=== PATIENT | female | born 1990 | race Caucasian/White ===

== ENCOUNTER 2025-02-27 16:32 | Emergency (ER) | payer OTHER, SELFPAY ==
[2025-02-27 16:33] VITALS: BP 109/59; PULSE 90; RESP 14; TEMP 37.5; O2SAT 97; BMI 30.2
--- NOTE | 2025-02-27 17:22 | US_ITS ---
PROCEDURE: TRANSVAGINAL W/PREG US 02/27/2025 REASON FOR EXAM: 8 WEEKS ABD PAIN. Abdominal pain, fever and dizziness TECHNIQUE: TRANSVAGINAL W/PREG US FINDINGS Number: 1 Position: Intrauterine Placental Position: Too early Placental Abnormalities: Too early to say DIMENSIONS: Gestational sac 3.22 cm/ Anechoic area adjacent to gestational sac measures 1.3 x 1.1 x 0.8 cm. Possible implantation bleed. Yolk sac: 0.46 cm Vance rump length: 2.62 cm. Gestational age based on crown rump length 9 weeks, 1 day ESTIMATED GESTATIONAL AGE: EGA by ultrasound: 8 weeks, 6 days. EGA by LMP 9 weeks, 3 days. Estimated due date by ultrasound: October 03, 2025. Estimated due date by LMP: September 29, 2025 Cardiac Motion: 193 beats per minute (average) Cervix: Closed. Fluid in cul-de-sac: None Uterus: 9.5 x 7.6 x 8.6 cm. Volume: 327 mL. Right ovary measures 42.2 x 1.1 x 0.96 cm volume: 1.19 mL. Left ovary measures 1.9 x 2.0 by 2.7 cm left ovary volume is 5.3 mL US/Transvaginal w/Preg US IMPRESSION: Single live intrauterine 8 weeks, 6 days by current ultrasound and 9 weeks, 3 days by LMP. ARELI by ultrasound: October 03, 2025 and by LMP September 29, 2025 Reading [facility]
--- NOTE | 2025-02-27 17:48 | EX.ED.DYSGE1 ---
HPI History of Present Illness Chief Complaint: Abd Pain Narrative Narrative: Patient is a 34-year-old female currently 8 weeks who presents to the emergency department chief complaint of abdominal pain. States on Friday she started feeling unwell with nausea and vomiting and has been progressively worsening. Patient states that she has had a gallbladder infection before but has not had this removed. She states that some of her children are ill right now but none of them have similar symptoms. Clinic at bedside she has been unable to keep anything down last several hours prompting them to come here. She states that she has had a fever and has been taking Tylenol at home [facility] Medical History no medical history Home Medications ?Medication ?Instructions ?Recorded ?Last Taken ?Type ondansetron 4 mg disintegrating 4 mg PO Q6H PRN nausea and 02/27/25 Unknown Rx tablet vomiting #20 tabs Allergy/AdvReac Type Severity Reaction Status Date / Time No Known Allergies Allergy Verified 02/27/25 16:33 Family History no significant family his Surgical History no surgical history Social History household members: spouse and children Smoking Status: Never smoker ROS ROS ED ROS Narrative Constitutional: Complains of fever as noted above and chills as well as whole body aches Eyes: Denies change in vision double vision Cardiovascular: Denies chest pain Respiratory: Denies shortness of breath Abdomen: Complains of abdominal pain as noted above as well as nausea vomiting : Denies any urinary symptoms Neurological: Denies any numbness, weakness, tingling Musculoskeletal: Complains of right back pain Skin: Denies any rashes or lesions EXAM Physical Exam Narrative Exam Narrative: General: Patient lying in bed resting comfortably did not appear to be acute distress Head: Atraumatic, normocephalic Eyes: PERRL bilateral, EOMI by, no conjunctival injection noted Neck: Soft, supple, trachea midline Cardiovascular: Regular rate and rhythm Respiratory: Clear to auscultation bilaterally Abdomen: Soft, nondistended, mild tenderness noted diffusely throughout her abdomen no focal area tenderness no rebound or guarding on exam Extremities: +5/5 strength noted in the bilateral upper and lower extremities, radial pulses +2/4 in the bladder extremities, no pedal edema exam Neurological: Patient follow commands knew that she was at [facility] the year is 2024 Skin: Warm, dry contact no rashes or lesions noted Const Vital Signs: 02/27/25 16:33 02/27/25 18:32 02/27/25 20:00 Temperature 99.5 F H Temperature Source Oral Pulse Rate 90 58 L 95 Respiratory Rate 14 15 16 Blood Pressure 109/59 L 110/78 106/62 Blood Pressure Mean 75 88 76 Pulse Ox 97 100 96 Oxygen Delivery Method Room Air Room Air 02/27/25 22:00 Temperature Temperature Source Pulse Rate 82 Respiratory Rate 16 Blood Pressure 106/62 Blood Pressure Mean 76 Pulse Ox 100 Oxygen Delivery Method Room Air MDM MDM MDM Narrative Medical decision making narrative: Patient is a 34-year-old female who presents to the emergency department with a chief complaint of abdominal pain nausea and vomiting in the setting of . She states that she has not seen a doctor about this she has not had any further testing. On the differential diagnosis includes but not limited to UTI, pyelonephritis, ectopic , appendicitis, cholecystitis. Once workup is obtained reviewed she will be reevaluated. Patient be given Reglan. Patient's CBC was reviewed which showed evidence leukocytosis of 15,000, hemoglobin 13.6, plate count of 365. Patient sodium was noted be 136, potassium 3.2 she will be given 40 mill equivalents of oral supplementation here, anion gap mildly elevated to 16, creatinine normal at 0.62. Patient AST and ALT are 62 and 29 respectively. Patient's quant level was 134,000 301 positive test. Patient 250 occult blood negative nitrites 0-5 white cells with no bacteria noted. Patient's ultrasound was reviewed which showed a single live intrauterine 8 weeks 6 days by current ultrasound at 9 weeks 3 days by last menstrual period. heart rate was noted to be the 193 bpm. I discussed the case with on-call [employer] Dr. Verdin who is recommending obtaining CT abdomen pelvis given that she is having right lower quadrant pain fevers and a white count. I discussed this plan with the patient and significant other bedside they are agreeable with this plan. We discussed the risks and benefits. Patient CT ab pelvis IV contrast showed no acute finding to suggest acute appendicitis. She does have evidence of enteritis or colitis. On reevaluation the patient she is feeling better she would like to go home at this point time. Did discuss results with the patient she was vies use Tylenol for pain and fever control. She will given Zofran ODT for nausea control. She is vies follow-up with her doctors in the outpatient setting return with worsening symptoms or concerns. She is agreeable this plan as well as significant other bedside all question concerns answered she was discharged home in stable condition. Lab Data Labs: Laboratory Results - last 24 hr 02/27/25 02/27/25 17:15 18:58 WBC 15.2 H RBC 4.94 Hgb 13.6 Hct 40.6 MCV 82.2 MCH 27.5 MCHC 33.5 RDW Std Deviation 39.7 RDW Coeff of Elisa 13.3 Plt Count 365 MPV 8.8 Immature Gran % (Auto) 0.300 Neut % (Auto) 83.0 H Lymph % (Auto) 11.4 L [place] % (Auto) 4.8 Eos % (Auto) 0.1 Baso % (Auto) 0.4 Absolute Neuts (auto) 12.6 H Absolute Lymphs (auto) 1.74 Nucleated RBC % 0 Sodium 136 Potassium 3.2 L Chloride 100 Carbon Dioxide 20.8 L Anion Gap 16 H BUN 5 Creatinine 0.62 L Estim Creat Clear Calc 110.81 Est GFR (MDRD) Non-Af 119 BUN/Creatinine Ratio 8.0 L Glucose 97 Calcium 9.5 Total Bilirubin 0.34 AST 62 H ALT 29 Alkaline Phosphatase 125 H Total Protein 8.5 H Albumin 4.3 Globulin 4.1 Albumin/Globulin Ratio 1.0 Lipase 39 HCG, Quant 334253 H Serum , Qual POSITIVE Urine Color Yellow Urine Clarity Sl. Cloudy Urine pH 6.0 Ur Specific [place] 1.020 Urine Protein 500 H Urine Glucose (UA) Normal Urine Ketones 50 H Urine Occult Blood 250 H Urine Nitrite Negative Urine Bilirubin Negative Urine Urobilinogen 1 H Ur Leukocyte Esterase 25 H Urine RBC 0-5 SEEN Urine WBC 0-5 SEEN Ur Squamous Epith Cells 0-5 SEEN Urine Bacteria 0 SEEN Urine Mucus 0 SEEN Radiography Diagnostic Testing: Clinical Impression(s) from Imaging Studies Obstetrics Ultrasound 02/27/25 17:22 IMPRESSION: Single live intrauterine 8 weeks, 6 days by current ultrasound and 9 weeks, 3 days by LMP. ARELI by ultrasound: October 03, 2025 and by LMP September 29, 2025 Reading Location: [facility] Abdomen/Pelvis CT 02/27/25 21:42 IMPRESSION: Negative exam. Differential diagnostic considerations and additional clinical findings discussed with Dr. Raymond in the ER at 10:40 p.m. February 27, 2025 Reading [facility] Discharge Plan Triage Chief Complaint: Abd Pain ED Provider: Ganesh Raymond Dx/Rx/DC Orders Clinical Impression: Abdominal pain, Fever, Currently , Viral gastroenteritis Prescriptions: New ondansetron 4 mg tablet,disintegrating 4 mg PO Q6H PRN (Reason: nausea and vomiting) Qty: 20 0RF Primary Care Provider: Mikhail Kyle Referrals: Mikhail Kyle PA-C [Primary Care Provider] - Activity Restrictions/Additional Instructions: Follow-up with your doctors in outpatient setting. Use the Zofran as needed for nausea as prescribed. Return with worsening symptoms or concerns. Your CT did not show any evidence of appendicitis does show evidence that he likely have a virus causing your symptoms. Ensure you are taking a vitamin daily. Print Language: Dominican Disposition Disposition: Home, Self Care
[2025-02-27 17:56] LABS: Hematocrit 40.6 % (37-47); Hemoglobin 13.6 g/dL (12.0-15.0); Immature Granulocytes Count 0.050 X10^3/uL (0.0-0.0); Mean Corp Hgb Conc 33.5 g/dL (32-36); Mean Corpuscular Volume 82.2 fL (81-99); Mean Platelet Vol. 8.8 fl (6.2-12.0); NRBC Flagged by Analyzer 0 % (0-5); Platelet Count 365 K/mm3 (150-450); RBC Distribution Width CV 13.3 % (11.6-14.6); RBC Distribution Width SD 39.7 fl (35.1-43.9); Red Blood Count 4.94 M/mm3 (4.2-5.4); White Blood Count 15.2 K/mm3 (4.4-11.0)
[2025-02-27 18:02] LABS: Internal QC Validated? YES +Cl - CLEAR BKGD; Record Kit Lot#, Serum Preg. 962302
[2025-02-27 18:04] LABS: AST(SGOT) 62 U/L (<=31); Alanine Aminotransfer ALT/SGPT 29 U/L (<=34); Albumin, Serum 4.3 g/dL (3.5-5.0); Alkaline Phosphatase 125 U/L (35-104); Anion Gap 16 (5-15); BUN 5 mg/dL (4-19); BUN/Creat Ratio 8.0 RATIO (10-20); Calcium,Total 9.5 mg/dL (7.6-11.0); Carbon Dioxide 20.8 mmol/L (21.0-32.0); Chloride 100 mmol/L (98-108); Estimated Creatinine Clearance 110.81 ml/min (50-250); Globulin 4.1 g/dL (2.2-4.2); Glucose 97 mg/dL (70-99); Lipase 39 U/L (13-75); Potassium 3.2 mmol/L (3.3-5.1)
--- OUTSIDE RECORDS SUMMARY | 2025-02-27 18:04 | XMS RPT_ITS | CCD ---
Author Organization [facility] Care Team Providers Care Glass Sander Name Role Phone Thomae, Pietro R Unavailable Unavailable No Doctor Assigned, Nodr Unavailable Unavail able Thomae, Pietro R Unavailable Unavailable Thomae, Pietro R Unavailable Unavailable Thomae, Pietro R Unavailable Unavailable No Doctor Assigned, Nodr Unavailable Unavail able Thomae, Pietro R Unavailable Unavailable No Doctor Assigned, Nodr Unavailable Unavail able Rickey Franklinta Unavailable Unavailable No Doctor Assigned, Nodr Unavailable Unavail able MESALINASHISUNDARAM CHANDRAMOHAN Unavailable Unavailable DALILA GILMORE Unavailable Unavailabl DAVID Ogden Unavailable Unavailable Problems Active Problems Problem Classification Problem Date Documented Da te Episodic/Chronic Regional enteritis and ulcerative colitis (1 source) Ulcerative (chronic) pancolitis without complications; Translations: [Ulcerative (chronic) pancolitis without complications] Onset: 09-02-2017 Chronic Past or Other Problems Problem Classification Problem Date Documented Da te Episodic/Chronic Abdominal pain (1 source) Right upper quadrant pain; Translations: [Right upper quadrant pain] Onset: 09-02-2017 Episodic Biliary tract disease (1 source) Calculus of gallbladder without cholecystitis without obstruction; Translations: [Calculus of gallbladder without cholecystitis without obstruction] Onset: 09-02-2017 Episodic Nausea and vomiting (1 source) Nausea with vomiting, unspecified; Translations: [Nausea with vomiting, unspecified] Onset: 09-02-2017 Episodic Noninfectious gastroenteritis (1 source) Noninfective gastroenteritis and colitis, unspecified; Translations: [Noninfective gastroenteritis and colitis, unspecified] Onset: 09-05-2017 Episodic Other circulatory disease (1 source) Hypotension, unspecified; Translations: [Hypotension, unspecified] Onset: 09-03-2017 Episodic Other gastrointestinal disorders (1 source) Diarrhea, unspecified; Translations: [Diarrhea, unspecified] Onset: 09-03-2017 Episodic Results Test Name Value Interpretation Reference Range Facility Basic Metabolic Panlon 09-05 Anion gap 10 mmol/L Normal 9-18 [facility] Comment on above: Performed By: #### B ETAMM, CMP, LIPA, CBCDIF ####[facility] [address] [place] [address] Calcium 8.1 mg/dL Low 8.5-10.2 [facility] Comment on above: Performed By: #### B ETAMM, CMP, LIPA, CBCDIF ####[facility] [address] [place] [address] Chloride 107 mmol/L High 97-105 [facility] Comment on above: Performed By: #### B ETAMM, CMP, LIPA, CBCDIF ####[facility] [address] [place] [address] CO2 23 mmol/L Normal 22-30 [facility] Comment on above: Performed By: #### B ETAMM, CMP, LIPA, CBCDIF ####[facility] [address] [place] [address] Creatinine 0.63 mg/dL Normal 0.58-0.96 [facility] Comment on above: Performed By: #### B ETAMM, CMP, LIPA, CBCDIF ####[facility] [address] [place] [address] eGFR (non-black) mL/min/{1.73_m2} Normal [facility] Comment on above: Result Comment: eGFR (Estimated GFR) Units of measure: mL/min/1.73 meters squaredeGFR is derived from the reexpressed MDRD Study equation using the following parameters: serum creatinine, age, gender and race. The creatinine assay has been calibrated to be traceable to IDMS.An eGFR <60 mL/min/1.73m2 for >3 months is consistent with chronic kidney disease. Refer to KDOQI guidelines for clinical interpretation.In patients with unstable renal function, e.g. those with acute kidney injury, the eGFR may not accurately reflect actual GFR. Performed By: #### B ETAMM, CMP, LIPA, CBCDIF ####[facility] [address] [place] [address] Glucose mass conc 89 mg/dL Normal 74-99 [facility] Comment on above: Result Comment: The [place] Diabetes Association (ADA) provides guidance for cutoff values for fasting glucose and random glucose. The ADA defines fasting as no caloric intake for at least 8 hours. Fasting plasma glucose results between 100 to 125 mg/dL indicate increased risk for diabetes (prediabetes).Fasting plasma glucose results greater than or equal to 126 mg/dL meet the criteria for diagnosis of diabetes. In the absence of unequivocal hyperglycemia, results should be confirmed by repeat testing. In a patient with classic symptoms of hyperglycemia or hyperglycemic crisis, random plasma glucose results greater than or equal to 200 mg/dL meet the criteria for diagnosis of diabetes.Reference: Standards of Medical Care in Diabetes 2016, [place] Diabetes Association. Diabetes Care. 2016.39(Suppl 1). Performed By: #### B ETAMM, CMP, LIPA, CBCDIF ####[facility] [address] [place] [address] Potassium molar conc 3.6 mmol/L Low 3.7-5.1 [facility] Comment on above: Performed By: #### B ETAMM, CMP, LIPA, CBCDIF ####[facility] [address] [place] [address] Sodium 140 mmol/L Normal 136-144 [facility] Comment on above: Performed By: #### B ETAMM, CMP, LIPA, CBCDIF ####[facility] [address] [place] [address] Urea nitrogen 4 mg/dL Low 7-21 [facility] Comment on above: Performed By: #### B ETAMM, CMP, LIPA, CBCDIF ####[facility] [address] [place] [address] CASE MANAGEMon 09-05-2017 CASE MANAGEM HNO ID: [id number] thor: Joie (Rn) EDDIE Griderervice: Case ManagementAuthor Type: Registered NurseType: Care Mgt Progress NoteFiled: 09/05/2017 5:08 PMNote Text:CARE MANAGEMENT DISCHARGE NOTESERVICE DATE: 09/05/2017SERVICE TIME: 5:06 PM LOS: 2 daysAdmission Date: 09/02/2017DISCHARGE ARRANGEMENT (list agency and phone number)HomeProvider: na Phone: naCAREGIVER ASSESSMENT:Caregiver is ready, willing and able to meet the patient's needs asrecommended by the inter-professional team? No Caregiver NeededPatient's transition needs and plan for meeting these needs: naDoes the patient have an acute stroke diagnosis, or has the patient had astroke during this admission? NoHANDOFF COMMUNICATION:Patient has follow up appointment schedule with GITRANSPORTATION ARRANGEMENTS:Car Friend will transportADDITIONAL CONTACT RESOURCES: naNeeds Prior to Discharge: Ready for DischargeDischarge order written for today, patient discharged home with noservices. Friend will transport.SIGNATURE: Joie Grider RN PATIENT NAME: Elsa Henry: September 05, 2017 : 5:06 PM PAGER/CONTACT #: [phone] Normal [facility] CBC and Differentialon 09-05 Abs Baso 0.06 k/uL Normal <0.11 [facility] Comment on above: Performed By: #### B ETAMM, CMP, LIPA, CBCDIF ####[facility] [address] [place] [address] Abs Lym 2.27 K/uL Normal 0.90-4.00 [facility] Comment on above: Performed By: #### B ETAMM, CMP, LIPA, CBCDIF ####[facility] [address] [place] [address] Abs Warren 0.32 k/uL Normal <0.87 [facility] Comment on above: Performed By: #### B ETAMM, CMP, LIPA, CBCDIF ####[facility] [address] [place] [address] Abs Neut 3.45 k/uL Normal 1.70-7.00 [facility] Comment on above: Performed By: #### B ETAMM, CMP, LIPA, CBCDIF ####[facility] [address] [place] [address] Basophils/100 WBC Auto (Bld) 1 % Normal [facility] Comment on above: Performed By: #### B ETAMM, CMP, LIPA, CBCDIF ####[facility] [address] [place] [address] Eosinophils 0.39 10*3/uL Normal <0.46 [facility] Comment on above: Performed By: #### B ETAMM, CMP, LIPA, CBCDIF ####[facility] [address] [place] [address] Eosinophils/100 leukocytes 6 % Normal [facility] Comment on above: Performed By: #### B ETAMM, CMP, LIPA, CBCDIF ####[facility] [address] [place] [address] Erythrocyte distribution width Auto Ratio (RBC) 12.5 % Normal 11.5-15.0 [facility] Comment on above: Performed By: #### B ETAMM, CMP, LIPA, CBCDIF ####[facility] [address] [place] [address] Erythrocytes (RBC) 3.77 10*6/uL Low 3.90-5.20 [facility] Comment on above: Performed By: #### B ETAMM, CMP, LIPA, CBCDIF ####[facility] [address] [place] [address] Hematocrit (HCT) 32.0 % Low 36.0-46.0 [facility] Comment on above: Performed By: #### B ETAMM, CMP, LIPA, CBCDIF ####[facility] [address] [place] [address] Hemoglobin mass conc (Bld) 10.1 g/dL Low 11.5-15.5 [facility] Comment on above: Performed By: #### B ETAMM, CMP, LIPA, CBCDIF ####[facility] [address] [place] [address] Lymphocytes/100 leukocytes 35 % Normal [facility] Comment on above: Performed By: #### B ETAMM, CMP, LIPA, CBCDIF ####[facility] [address] [place] [address] MCH 26.8 pG Normal 26.0-34.0 [facility] Comment on above: Performed By: #### B ETAMM, CMP, LIPA, CBCDIF ####[facility] [address] [place] [address] MCHC mass conc (RBC) 31.6 g/dL Normal 30.5-36.0 [facility] Comment on above: Performed By: #### B ETAMM, CMP, LIPA, CBCDIF ####[facility] [address] [place] [address] MCV 84.9 fL Normal 80.0-100.0 [facility] Comment on above: Performed By: #### B ETAMM, CMP, LIPA, CBCDIF ####[facility] [address] [place] [address] Monocytes/100 leukocytes 5 % Normal [facility] Comment on above: Performed By: #### B ETAMM, CMP, LIPA, CBCDIF ####[facility] [address] [place] [address] Neutrophils/100 WBC Auto (Bld) 53 % Normal [facility] Comment on above: Performed By: #### B ETAMM, CMP, LIPA, CBCDIF ####[place] [address] Platelet mean volume (PMV) 8.7 fL Low 9.0-12.7 [facility] Comment on above: Performed By: #### B ETAMM, CMP, LIPA, CBCDIF ####[facility] [address] [place] [address] Platelets Platelet estimate adequate Normal [facility] Comment on above: Performed By: #### B ETAMM, CMP, LIPA, CBCDIF ####[facility] [address] [place] [address] Platelets 291 10*3/uL Normal 150-400 [facility] Comment on above: Performed By: #### B ETAMM, CMP, LIPA, CBCDIF ####[facility] [address] [place] [address] Red Cell Morph SEE COMMENT Normal [facility] Comment on above: Result Comment: Unre markable Performed By: #### B ETAMM, CMP, LIPA, CBCDIF ####[facility] [address] [place] [address] WBC (Leukocytes) 6.49 10*3/uL Normal 3.70-11.00 [facility] Comment on above: Performed By: #### B ETAMM, CMP, LIPA, CBCDIF ####[facility] [address] [place] [address] CNDSon 09-05-2017 CNDS HNO ID: [id number] thor: ZAK Joeervice: [facility] MedicineAuthor Type: PhysicianType: Discharge SummariesFiled: 09/05/2017 4:20 PMNote Text:DISCHARGE SUMMARYPATIENT NAME: Elsa CruzN: [id number] Information Admission Information ADMIT DATE: 09/02/2017DISCHARGE DATE: 09/05/2017MY DOCTORS AND MEDICAL TEAM:My Main Hospital Doctor: Calixto Joe Care Provider: No primary care provider on file.My Medical Team Members: Treatment Team:Attending Provider: RAY Joeonsulting: Greyson Qiu BashourConsulting: David Proctor CONDITION AT DISCHARGE: StableREASON I WAS IN THE HOSPITAL: The cultures on the stool showed Salmonella. The infectious disease doctor felt that Omnicef was the best antibioticand it is prescribed. You are also to take the bacterial culture andawait to her gallbladder taken out after being cleared by thegastroenterologist.SUMMARY OF WHAT HAPPENED WHILE I WAS IN THE HOSPITAL: Given IV fluids andstudies of your gallbladder were done that showed you have pain sometimesfrom the stones but the gallbladder is not infected yet.OTHER PROBLEMS/DIAGNOSIS:Active Problems: Colitis, acute Calculus of gallbladder without cholecystitis Diarrhea of presumed infectious origin Hypotension Ulcerative colitis without complications (HCC)Resolved Problems: * No resolved hospital problems. *OPERATIONS PERFORMED WHILE IN THE HOSPITAL: NoneIMPORTANT TEST/PROCEDURES:No procedures performedTEST RESULTS NOT AVAILABLE AT THIS TIME:No pending results Discharge Disposition Discharge Disposition: Home With Self CareActivity When You Leave the Hospital Resume pre-hospital activityDiet Instructions Low Fat Small meals with low fat content to prevent gallbladder spasmFor Pain When You Leave the Hospital Use acetaminophen (Tylenol) as recommended on the bottleFollow Up Appointments Follow-Up Appointment [place] officeWhen: In: Comment - 09/19 10:30Patient/Parents to call for appointment?: Gregorio [phone] DIGESTIVE DISEASE [id number] [facility] [address] [id number] Requested ReferralAdditional Provider to Provider Information:Active Hospital Problems as of 09/05/2017 Noted - Resolved A Colitis, acute 09/03/2017 - Present Current Assessment AND PlanAssessment: 4 years duration with intermittent symptoms treated asulcerative colitis in the past records are pending from [facility] positiveoccult blood and lactoferrin. Negative Giardia and cryptosporidium and C.difficilePLAN:Per GI service B Calculus of gallbladder without cholecystitis 09/03/2017 - Present Current Assessment AND PlanAssessment: Multiple stones with recurrent vomiting concerning for biliarycolicPLAN:HIDA scan pending C Diarrhea of presumed infectious origin 09/03/2017 - Present Current Assessment AND PlanAssessment: Stool studies are sentPLAN:plan from GI D Hypotension 09/03/2017 - Present Current Assessment AND PlanAssessment: Lactate is negative and she is responding with improvement ofher symptoms with IV hydrationPLAN:Continue hydration M Ulcerative colitis without complications (HCC) 09/03/2017 - Present Current Assessment AND PlanAssessment: similar episodes of diarrhea, N/V, 4 years duration recurrentsymptomsPLAN:Colonosc opy plannedResolved Hospital Problems as of 09/05/2017 NoneFOLLOW-UP APPOINTMENTS ALREADY SCHEDULED WITH A [facility] PROVIDER:No future appointments.DISCHARGE MEDICATION: Current Discharge Medication ListSTART taking these medicationslactobacillus rhamnosus (CULTURELLE) 1 capsuleTake 1 capsule by mouth once daily.Qty: 30 capsule Refills: 0ondansetron orally disintegrating (ZOFRAN ODT) 4 mgTake 4 mg by mouth every 6 hours as needed.Qty: 12 tablet Refills: 0cefdinir (OMNICEF) 300 mgTake 300 mg by mouth twice daily.Qty: 14 capsule Refills: 0BP 102/67 Pulse (!) 55 Temp 37.1 ?C (98.8 ?F) (Oral) Resp 18 Ht154.9 cm (5' 1) Wt 55.1 kg (121 lb 6.4 oz) LMP 08/02/2017 SpO2 94% BMI 22.94 kg/q7OHGHAJK: Alert, no distress, cooperativeNECK: No Jugulovenous distentionLUNGS: Clear without respiratory distressCARDIAC: RRR without murmur, rub, or gallopABDOMEN: Abdomen soft, non-tender, BS normal, No masses or organomegalyEXTREMITIES:no edema No cordsNEURO: Grossly normal cognition, motor function, and cranial nerves.TIME OF CARE: Discharge Management: I personally spent greater than 30minutes involved in the discharge management of this patient.SIGNATURE: Dalila Gilmore MD PAGER/CONTACT #:DATE: September 05, 2017TIME: 4:16 PM [facility] CONSULT PROGon 09-05-2017 CONSULT PROG HNO ID: [id number] thor: Joie ([facility]) Musaervice: General SurgeryAuthor Type: Nurse PractitionerType: Consult Progress NoteFiled: 09/05/2017 1:08 PMNote Text: Attes tation signed by David Stewart at 09/05/2017 2:13 PMPatient seen and examinedAgree with [facility] notesFeeling better.Salmonella infection/ ? UCNo acute cholecystitis -- but does have biliary colic.Recommend gerber after colitis resolvedPatient and family in agreement with Duncan Stewart MD ASHVIN Galeas PROGRESS NOTESERVICE DATE: 09/05/2017SERVICE TIME: 1:02 PMINTERVAL HPI: Elsa is feeling better, her abdominal pain is minimal, nonausea, tolerating a soft diet, passing gas, bowel movement this morningthat was normal, no blood or mucous. + salmonella infection, discussedproper food handling and hand washing with patient and her family.Assessment/PlanActive Problems: Colitis, acute POA: Yes Assessment AND Plan: per GI Calculus of gallbladder without cholecystitis POA: Yes Assessment AND Plan: No immediate surgical need, may consider as anoutpatient dependent on symptoms. Diarrhea of presumed infectious origin POA: Yes Assessment AND Plan: Per GIResolved Problems: * No resolved hospital problems. *Current hospital medications:ciprofloxacin HCl 500 mg tab(s) (CIPRO) 500 mg ORAL q 12 Hlactobacillus rhamnosus 10 billion cell (CULTURELLE) capsule 1 capsuleORAL DAILYondansetron orally disintegrating 4 mg tab(s) (ZOFRAN ODT) 4 mg ORAL q 6 HPRNondansetron (PF) 4 mg injection (ZOFRAN) 4 mg INTRAVENOUS q 6 H PRNiv contrast (radiology procedure) INTRAVENOUS DIRECTED PRNObjectivePHYSICAL EXAM:BP 102/67 Pulse 55 Temp (Src) 98.8 (Oral) Resp 18 Ht 5' 1 (1.55m) Wt 121 lb 6.4 oz (55.1kg) SpO2 94% LMP 08/02/2017 BMI 22.95kg/(m2).GENERAL: Alert, no distress, cooperativeSKIN: Skin color, texture, turgor normal. No rashes or lesions.LUNGS: Lungs clear to auscultation, Good diaphragmatic excursionCARDIAC: Normal S1 and S2; no rubs, murmurs, or gallopsABDOMEN: Abdomen soft, mild epigastric tenderness with palpation, BSnormal, No masses or organomegalyEXTREMITIES: Extremities normal, no deformities, edema, clubbing or skindiscoloration. Good capillary refill.NEURO: Gait normal. Reflexes normal and symmetric. Sensation grosslyintact, Cranial nerves II-XII intactPULSES: 2+ radial, 2+ carotidRECTAL: Exam deferredWOUND: Not applicableDATA:Diagnostic tests reviewed for today's visit:Most recent labs and imaging results.SIGNATURE: Joie Rausch CNP PATIENT NAME: Elsa GuidoDATE: September 05, 2017 : 1:02 PM PAGER: [phone] Normal [facility] CONSULT PROG HNO ID: [id number] thor: Gabriel Currie: GastroenterologyAuthor Type: PhysicianType: Consult Progress NoteFiled: 09/05/2017 1:06 PMNote Text:GASTROENTEROLOGY CONSULT PROGRESS NOTEPatient Name: Elsa GuidoMRN: [id number] DATE: September 05, 2017SERVICE TIME: 8:27 AMASSESSMENT1- Salmonella infection2- Abdominal pain, nausea, vomiting, diarrhea - improved. Most likely r/t#1.3- CT evidence of colitis from cecum through descending colon4- Cholelithiasis with normal HIDA scan (09/03/17)5- Normocytic anemia with component of low iron6- Hx UC (no meds)?PLAN- Continue Cipro 500 mg po Q12 x 7 days (09/04/17)- Advance diet to GI soft- Culturelle daily- Encouraged increased ambulation- D/C IVF- Await results of remaining stool studies (final culture)- Stool log- CBC, BMP daily- Surgery on consult with no plans for surgical intervention at this time. Will most likely need lap gerber- timing as per surgery- Will need colonoscopy in 4 weeks after resolution of Salmonellainfection- Follow up appointment arranged with [facility]. Mauricio [facility] Colonoscopy to be arranged at that time.Patient seen and examined. Discussed with mid level provider. Fishman findingsconfirmed. Plan as outlined.Gabriel Santacruz, [facility] 20171:06 PM INTERVAL HPI: Stools decreasing in frequency and starting to form. Onestool overnight and once thus far this am. No hematochezia. Denies nauseaor vomiting. Tolerating [place] diet. Asking for oatmeal. Abdominal painimproved- ~2/10.PHYSICAL EXAM:Patient Vitals for the past 24 hrs: BP Temp Temp src Pulse Resp SpO2 Covhkr71/02/18 0757 102/67 37.1 ?C (98.8 ?F) Oral (!) 55 18 94 % -09/05/17 0554 - - - - - - 55.1 kg (121 lb 6.4 oz)09/05/17 0014 87/57 - - 60 - - -09/05/17 0013 (!) 87/48 36.9 ?C (98.4 ?F) Oral (!) 52 22 96 % -09/04/17 1609 100/63 36.8 ?C (98.2 ?F) Oral (!) 57 18 98 % -GENERAL: Alert and oriented x 3. Appears comfortable. NADHEENT: No pallor. No scleral icterusLUNGS: Clear to auscultation posteriorlyCARDIAC: RRRABDOMEN: Soft. Non distended. Tender RUQ and RLQ. Bowel sounds normal. Noguarding or rebound tenderness.EXTREMITIES: No edema to JOSEPH lower extremitiesLABS:CBC, Coags, BMP, Mg, PhosRecent Labs 09/04/1802WBC 6.49 8.71 -- -- 9.41HB 10.1* 10.4* -- -- 11.7HCT 32.0* 33.1* -- -- 36.3PLT 291 303 -- -- 367NA 140 140 -- 142 141K 3.6* 3.9 -- 3.9 3.6*CHLOR 107* 106* -- 106* 103CO2 23 24 -- 25 25BUN 4* 5* -- 4* 5*CREAT 0.63 0.65 -- 0.61 0.65GLUC 89 92 -- 107* 97CA 8.1* 8.1* -- 7.8* 9.1MG -- -- 2.0 -- --Liver Function, Amylase, AND LipaseRecent Labs 09/02/1819TPROT 6.3 7.7ALB 3.2* 4.0ALT <5* <5*AST 12* 13ALKPHOS 57 70TBILI 0.3 0.2LIPASE 49 63*MEDICATIONS:Current hospital medications:ciprofloxacin HCl 500 mg tab(s) (CIPRO) 500 mg ORAL q 12 Hlactobacillus rhamnosus 10 billion cell (CULTURELLE) capsule 1 capsuleORAL DAILYNaCl 0.9% iv infusion 75 mL/hr INTRAVENOUS CONTINUOUSondansetron orally disintegrating 4 mg tab(s) (ZOFRAN ODT) 4 mg ORAL q 6 HPRNondansetron (PF) 4 mg injection (ZOFRAN) 4 mg INTRAVENOUS q 6 H PRNiv contrast (radiology procedure) INTRAVENOUS DIRECTED PRNMISC LABSComponent Latest Ref Rng AND Units 09/02/2017 09/03/2017Color Yellow Yellow ??Appearance (U) Clear Clear ??Glucose, Urine Negative mg/dL Negative ??Bilirubin, Urine Negative Negative ??Ketones, Urine Negative Negative ??Specific [place], Ur 1.001 - 1.029 1.015 ??Hemoglobin/Blood,Ur Negative ? Small (A) ??pH, Urine 5.0 - 8.0 5.5 ??Protein, Urine Negative mg/dL Trace (A) ??Urobilinogen 0.2 - 1.0 0.2 ??Nitrites Negative Negative ??Leukest Negative Negative ??HCG, Qualitative Negative Negative ??Lactate 0.5 - 2.2 mmol/L ?? 0.5?Component Latest Ref Rng AND Units 09/03/2017Sed Rate, Westergren 0 - 20 mm/hr 25 (H)CRP <0.9 mg/dL 1.4 (H)09/03/17 OB stool (+). C.diff (-). Fecal WBC (+). Stool culture(preliminary + for salmonella). O+P (-)?Component Latest Ref Rng AND Units 09/04/2017Iron 41 - 186 ug/dL 40 (L)TIBC 232 - 386 ug/dL 195 (L)Transferrin Saturation 11 - 46 % 21Ferritin 14.7 - 205.1 ng/mL 43.0Folate >4.7 ng/mL >20.0Vitamin B12 232 - 1245 pg/mL 1222RADIOLOGY?09/02/17 RUQ USFINDINGS: There is a curvilinear hyperechoic lying along the gallbladder,with acoustic shadowing distally suggesting a wall echo shadow sign. ?Thislikely represents gallstones within a contracted gallbladder. ?No overtgallbladder wall thickening appreciated. ?The proximal common ductdiameter is within normal limits. It measures 2 mm. The sonographerreports a negative sonographic Nascimento sign. Visible portions of the liver,both kidneys, spleen and pancreas are unremarkable. ?No fluid collectionsare seen. Evaluation limited by numerous coughing episodes limitingscanningIMPRESSION: 1. ?Findings suggestive of contracted gallstone filledgallbladder. ?No biliary duct dilatation.??09/02/17 CT AP with IV contrastIMPRESSION:1. ?Colonic mural thickening from the cecum through the descending colonand possibly involving the proximal sigmoid colon. ?These changes couldrepresent infectious/inflammatory colitis. ?Bowel ischemia can have asimilar appearance. ?Recommend correlation with clinical findings.2. ?Enlarged left ovarian vein and associated increased vascularity in theleft adnexal region. ?This appearance can be seen with the pelvic?congestion syndrome. ?Recommend correlation with clinical findings.09/03/17 HIDA ScanIMPRESSION: 1. PATENT CYSTIC AND COMMON BILE DUCTS. NO EVIDENCE OF ACUTECHOLECYSTITIS.2. NORMAL GALLBLADDER EJECTION FRACTION (96%). NO EVIDENCE OF CHRONICCHOLECYSTITIS.??MOST RECENT EGDNo previous??MOST RECENT COLONOSCOPY: 11/26/2012 (Pietro Pablo DO). Diarrhea1. Sub-optimal bowel prep2. Exam to 60 cm3. Hair - colitis to level of distal transverse colon. Limitedvisualization from that point because of inadequate prep. Inflammation didextend visually beyond point of insertion. Gross appearance is consistentwith UC.Left colon random biopsy: moderately active chronic acute colitis.Features of chronicity such as moderate glandular architectural distortionand basal plasmacytosis. There is fibrinopurulent exudate consistent withulcer. No viral inclusions or microorganisms identified. No granulomas.Negative for dysplasia. PAS and GMS stains were negative.?SIGNATURE: Tere Sheriff CNPDATE: September 05, 2017TIME: 8:27 AM Normal [facility] NURSING PROGon 09-05-2017 NURSING PROG HNO ID: [id number] thor: Duncan (Rn) EDDIE Kaplanervice: (none)Author Type: Registered NurseType: Nursing Progress NoteFiled: 09/05/2017 6:17 PMNote Text: Nursing Progress NotePatient Name: Elsa GuidoN: [id number] Location: [id number] _Daily Note: Discharge written, HL discontinued. Scripts called tooutpatient [id number] instructions reviewed with patient with adequateknowledge-scripts picked-up by [id number]-Ufx floor via w/c with spouseThis note was completed by: Duncan Kaplan RN [facility] NURSING PROG HNO ID: [id number] thor: Nivia PryorRn) EDDIE Suarezervice: (none)Author Type: Registered NurseType: Nursing Progress NoteFiled: 09/05/2017 12:22 AMNote Text: Nursing Progress NotePatient Name: Elsa GuidoMRN: [id number] Location: [place] [address]/[id number] _Daily Note: 2300 assumed care of pt at this time. IVF infusing. C/o's 1/10abd pain, denies nausea.This note was completed by: Nivia Suarez RN [facility] CASE MANAGEMon 09-04-2017 CASE MANAGEM HNO ID: [id number] thor: Joie Hernandez) EDDIE Griderervice: Case ManagementAuthor Type: Registered NurseType: Care Mgt Progress NoteFiled: 09/04/2017 10:17 AMNote Text:CARE MANAGEMENT PROGRESS NOTESERVICE DATE: 09/04/2017SERVICE TIME: 10:15 AM LOS: 1 dayNeeds Prior to Discharge: To Be DeterminedMet with patient and family at bedside to discuss discharge plan, planremains for patient to discharge home with no services. CM will remainavailable for discharge planning needs.SIGNATURE: Joie Grider RN PATIENT NAME: Elsa GuidoDATE: September 04, 2017 : 10:15 AM PAGER/CONTACT #: [phone] [facility] CBC and Differentialon 09-04 Abs Baso 0.17 k/uL High <0.11 [facility] Comment on above: Performed By: #### B ETAMM, CMP, LIPA, CBCDIF ####[facility] [address] [place], [place] [phone] Abs Lym 2.00 K/uL Normal 0.90-4.00 [facility] Comment on above: Performed By: #### B ETAMM, CMP, LIPA, CBCDIF ####[facility] [address] [place] [address] Abs Warren 0.35 k/uL Normal <0.87 [facility] Comment on above: Performed By: #### B ETAMM, CMP, LIPA, CBCDIF ####[facility] [address] [place] [address] Abs Neut 5.66 k/uL Normal 1.70-7.00 [facility] Comment on above: Performed By: #### B ETAMM, CMP, LIPA, CBCDIF ####[place] [address] Basophils/100 WBC Auto (Bld) 2 % Normal [facility] Comment on above: Performed By: #### B ETAMM, CMP, LIPA, CBCDIF ####[place] [address] Eosinophils 0.44 10*3/uL Normal <0.46 [facility] Comment on above: Performed By: #### B ETAMM, CMP, LIPA, CBCDIF ####[place] [address] Eosinophils/100 leukocytes 5 % Normal [facility] Comment on above: Performed By: #### B ETAMM, CMP, LIPA, CBCDIF ####[place] [address] Erythrocyte distribution width Auto Ratio (RBC) 12.6 % Normal 11.5-15.0 [facility] Comment on above: Performed By: #### B ETAMM, CMP, LIPA, CBCDIF ####[place] [address] Erythrocytes (RBC) 3.88 10*6/uL Low 3.90-5.20 [facility] Comment on above: Performed By: #### B ETAMM, CMP, LIPA, CBCDIF ####[facility] [address] [place] [address] Hematocrit (HCT) 33.1 % Low 36.0-46.0 [facility] Comment on above: Performed By: #### B ETAMM, CMP, LIPA, CBCDIF ####[facility] [address] [place] [address] Hemoglobin mass conc (Bld) 10.4 g/dL Low 11.5-15.5 [facility] Comment on above: Performed By: #### B ETAMM, CMP, LIPA, CBCDIF ####[facility] [address] [place] [address] Lymphocytes/100 leukocytes 23 % Normal [facility] Comment on above: Performed By: #### B ETAMM, CMP, LIPA, CBCDIF ####[facility] [address] [place] [address] MCH 26.8 pG Normal 26.0-34.0 [facility] Comment on above: Performed By: #### B ETAMM, CMP, LIPA, CBCDIF ####[facility] [address] [place] [address] MCHC mass conc (RBC) 31.4 g/dL Normal 30.5-36.0 [facility] Comment on above: Performed By: #### B ETAMM, CMP, LIPA, CBCDIF ####[facility] [address] [place] [address] MCV 85.3 fL Normal 80.0-100.0 [facility] Comment on above: Performed By: #### B ETAMM, CMP, LIPA, CBCDIF ####[facility] [address] [place] [address] [place]% 1 % High 0 [facility] Comment on above: Performed By: #### B ETAMM, CMP, LIPA, CBCDIF ####[facility] [address] [place] [address] Monocytes/100 leukocytes 4 % Normal [facility] Comment on above: Performed By: #### B ETAMM, CMP, LIPA, CBCDIF ####[facility] [address] [place] [address] Neutrophils/100 WBC Auto (Bld) 65 % Normal [facility] Comment on above: Performed By: #### B ETAMM, CMP, LIPA, CBCDIF ####[facility] Oowblzlivv4577 [address] Platelet mean volume (PMV) 8.8 fL Low 9.0-12.7 [facility] Comment on above: Performed By: #### B ETAMM, CMP, LIPA, CBCDIF ####[facility] Najbbbiqvu4568 [address]5[address] Platelets Platelet estimate adequate Normal [facility] Comment on above: Performed By: #### B ETAMM, CMP, LIPA, CBCDIF ####[facility] Hvyexsnfzz6426 [address] Platelets 303 10*3/uL Normal 150-400 [facility] Comment on above: Performed By: #### B ETAMM, CMP, LIPA, CBCDIF ####[facility] Jguyp[address]ord[address]67 [place] [phone] WBC (Leukocytes) 8.71 10*3/uL Normal 3.70-11.00 [facility] Comment on above: Performed By: #### B ETAMM, CMP, LIPA, CBCDIF ####[facility] [address] [place] [phone] CONSULT PROGon 09-04-2017 CONSULT PROG HNO ID: [id number] thor: Diana WaldronbService: GastroenterologyAuthor Type: PhysicianType: Consult Progress NoteFiled: 09/04/2017 1:25 PMNote Text:GASTROENTEROLOGY CONSULT PROGRESS NOTEPatient Name: Elsa GuidoN: [id number] DATE: September 04, 2017SERVICE TIME: 8:49 AMASSESSMENT1- Abdominal pain, nausea, vomiting, diarrhea - could have component ofbiliary etiology but also has evidence of colitis in the setting of knownUC on no medications2- CT evidence of colitis from cecum through descending colon3- Cholelithiasis4- Normocytic anemia5- Hx UC (no meds)PLAN- Will proceed with colonoscopy in am with Dr. Santacruz- Await results of remaining stool studies (culture, O+P, WBC)- Await results of HIDA scan. Follow surgery recommendations (they wouldprefer colitis to be controlled before proceeding with lap gerber)- Stool log- CBC, BMP daily. Check iron profile, B12, folate- Revert to clear liquid diet / NPO after midnightAddendum @ 12:30 pm. Notified by nursing that stool culture came backpositive for Salmonella. Thus will defer colonoscopy and treat with 7 daycourse of Cipro 500 mg po Q12. Advance diet back to full liquids andpossibly GI soft in am based on how she feels. AWCPatient seen and examined. Discussed with mid level provider. Fishman findingsconfirmed. Plan as outlined.Feeling better. Reports stools are forming up. Notified that stoolculture shows Salmonella. Will treat with Cipro and plan for colonoscopyin 4 weeks. HIDA was normal.Diana [place], [facility] [address]:23 PM INTERVAL HPI: She reports right-sided abdominal pain somewhat improvedsince admission. Some radiation to right flank. No nausea or vomiting.Toelrating a full iquid diet this am. Had a loose, non-bloody stool thisam. She reports a chronic history of diarrhea. No fevers or leukocytosisnoted. C.diff was negative. Other stool studies are pending. Had HIDA scanlast night but results not yet known.PHYSICAL EXAM:Patient Vitals for the past 24 hrs: BP Temp Temp src Pulse Resp SpO2 Uxmlxz01/01/18 0736 /52 36.8 ?C (98.2 ?F) Oral 66 16 93 % -09/03/17 2358 (!) 37.1 ?C (98.8 ?F) Oral 63 18 97 % -09/03/17 1700 - - - - - - 54.9 kg (121 lb 1.6 oz)09/03/17 1616 (!) 36.7 ?C (98.1 ?F) Oral 84 16 98 % -GENERAL: Alert and oriented x 3. Appears comfortable. NADHEENT: No pallor. No scleral icterusLUNGS: Clear to auscultation posteriorlyCARDIAC: RRRABDOMEN: Soft. Non distended. Tender RUQ and RLQ. Bowel sounds normal. Noguarding or rebound tenderness.EXTREMITIES: No edema to JOSEPH lower extremitiesMEDICATIONS:Current hospital medications:NaCl 0.9% iv infusion 75 mL/hr INTRAVENOUS CONTINUOUSondansetron orally disintegrating 4 mg tab(s) (ZOFRAN ODT) 4 mg ORAL q 6 HPRNondansetron (PF) 4 mg injection (ZOFRAN) 4 mg INTRAVENOUS q 6 H PRNiv contrast (radiology procedure) INTRAVENOUS DIRECTED PRNLABS:CBC, Coags, BMP, Mg, PhosRecent Labs 09/03/1805WBC 8.71 -- -- 9.41HB 10.4* -- -- 11.7HCT 33.1* -- -- 36.3PLT 303 -- -- 367NA 140 -- 142 141K 3.9 -- 3.9 3.6*CHLOR 106* -- 106* 103CO2 24 -- 25 25BUN 5* -- 4* 5*CREAT 0.65 -- 0.61 0.65GLUC 92 -- 107* 97CA 8.1* -- 7.8* 9.1MG -- 2.0 -- --Liver Function, Amylase, AND LipaseRecent Labs 09/02/1819TPROT 6.3 7.7ALB 3.2* 4.0ALT <5* <5*AST 12* 13ALKPHOS 57 70TBILI 0.3 0.2LIPASE 49 63*MISC LABSComponent Latest Ref Rng AND Units 09/02/2017 09/03/2017Color Yellow Yellow ?Appearance (U) Clear Clear ?Glucose, Urine Negative mg/dL Negative ?Bilirubin, Urine Negative Negative ?Ketones, Urine Negative Negative ?Specific [place], Ur 1.001 - 1.029 1.015 ?Hemoglobin/Blood,Ur Negative Small (A) ?pH, Urine 5.0 - 8.0 5.5 ?Protein, Urine Negative mg/dL Trace (A) ?Urobilinogen 0.2 - 1.0 0.2 ?Nitrites Negative Negative ?Leukest Negative Negative ?HCG, Qualitative Negative Negative ?Lactate 0.5 - 2.2 mmol/L ? 0.5?Component Latest Ref Rng AND Units 09/03/2017Sed Rate, Westergren 0 - 20 mm/hr 25 (H)CRP <0.9 mg/dL 1.4 (H)09/03/17 OB stool (+). C.diff (-). Fecal WBC pending. Stool culturepending. O+P pendingRADIOLOGY09/02/17 RUQ USFINDINGS: There is a curvilinear hyperechoic lying along the gallbladder,with acoustic shadowing distally suggesting a wall echo shadow sign. ?Thislikely represents gallstones within a contracted gallbladder. ?No overtgallbladder wall thickening appreciated. ?The proximal common ductdiameter is within normal limits. It measures 2 mm. The sonographerreports a negative sonographic Nascimento sign. Visible portions of the liver,both kidneys, spleen and pancreas are unremarkable. ?No fluid collectionsare seen. Evaluation limited by numerous coughing episodes limitingscanningIMPRESSION: 1. ?Findings suggestive of contracted gallstone filledgallbladder. ?No biliary duct dilatation.?09/02/17 CT AP with IV contrastIMPRESSION:1. ?Colonic mural thickening from the cecum through the descending colonand possibly involving the proximal sigmoid colon. ?These changes couldrepresent infectious/inflammatory colitis. ?Bowel ischemia can have asimilar appearance. ?Recommend correlation with clinical findings.2. ?Enlarged left ovarian vein and associated increased vascularity in theleft adnexal region. ?This appearance can be seen with the pelviccongestion syndrome. ?Recommend correlation with clinical findings.?MOST RECENT EGDNo previous?MOST RECENT COLONOSCOPY: 11/26/2012 (Pietro Pablo DO). Diarrhea1. Sub-optimal bowel prep2. Exam to 60 cm3. Hair - colitis to level of distal transverse colon. Limitedvisualization from that point because of inadequate prep. Inflammation didextend visually beyond point of insertion. Gross appearance is consistentwith UC.Left colon random biopsy: moderately active chronic acute colitis.Features of chronicity such as moderate glandular architectural distortionand basal plasmacytosis. There is fibrinopurulent exudate consistent withulcer. No viral inclusions or microorganisms identified. No granulomas.Negative for dysplasia. PAS and GMS stains were negative.SIGNATURE: Krissy Barbosa, CNSDATE: September 04, 2017TIME: 8:49 AM [facility] CONSULT PROG HNO ID: [id number] thor: David Sanchez: General SurgeryAuthor Type: PhysicianType: Consult Progress NoteFiled: 09/04/2017 8:17 AMNote Text:CONSULT PROGRESS NOTESERVICE DATE: 09/04/2017SERVICE TIME: 8:14 AMCONSULTING SERVICE: surgerySubjectiveINTERVAL HPI: tolerating diet w/o N/V. Still c/o right sided abd painCurrent hospital medications:NaCl 0.9% iv infusion 75 mL/hr INTRAVENOUS CONTINUOUSondansetron orally disintegrating 4 mg tab(s) (ZOFRAN ODT) 4 mg ORAL q 6 HPRNondansetron (PF) 4 mg injection (ZOFRAN) 4 mg INTRAVENOUS q 6 H PRNiv contrast (radiology procedure) INTRAVENOUS DIRECTED PRNObjectivePHYSICAL EXAM:Physical Exam Performed:GENERAL: Alert, no distress, cooperativeABDOMEN: Abdomen soft, mildly-tender on right side of abd, BS normal, Nomasses or organomegalyBP 96/52 Pulse 66 Temp (Src) 98.2 (Oral) Resp 16 Ht 5' 1 (1.55m) Wt 121 lb 1.6 oz (54.9kg) SpO2 93% LMP 08/02/2017 BMI 22.89kg/(m2).DATA:Diagnostic tests reviewed for today's visit:Most recent labs and imaging results.Impression/Recommendat ions26 yo female with ulcerative colitis -- ? Acute flare + ? Symptomaticcholelithiasis (no obvious cholecystitis)Awaiting HIDA scan from yesterdayIdeally would prefer colitis to be controlled prior to lap choleAwaiting further GI recs.Cont to followSIGNATURE: David Stewart MD PATIENT NAME: Elsa EvansderDATE: September 04, 2017 : 8:14 AM PAGER: Normal [facility] Comp Metabolic Panelon 09-04 Alanine aminotransferase (ALT) U/L Low 7-38 [facility] Comment on above: Performed By: #### B ETAMM, CMP, LIPA, CBCDIF ####[facility] [address] [place], [place] [phone] Albumin 3.2 g/dL Low 3.9-4.9 [facility] Comment on above: Performed By: #### B ETAMM, CMP, LIPA, CBCDIF ####[facility] [address] [place] [address] Alkaline phosphatase (ALP) 57 U/L Normal 32-117 [facility] Comment on above: Performed By: #### B ETAMM, CMP, LIPA, CBCDIF ####[facility] [address] [place] [address] Anion gap 10 mmol/L Normal 9-18 [facility] Comment on above: Performed By: #### B ETAMM, CMP, LIPA, CBCDIF ####[facility] [address] [place] [address] Aspartate aminotransferase (AST) 12 U/L Low 13-35 [facility] Comment on above: Performed By: #### B ETAMM, CMP, LIPA, CBCDIF ####[facility] [address] [place] [address] Bilirubin (total) 0.3 mg/dL Normal 0.2-1.3 [facility] Comment on above: Performed By: #### B ETAMM, CMP, LIPA, CBCDIF ####[facility] [address] [place] [address] Calcium 8.1 mg/dL Low 8.5-10.2 [facility] Comment on above: Performed By: #### B ETAMM, CMP, LIPA, CBCDIF ####[facility] [address] [place] [address] Chloride 106 mmol/L High 97-105 [facility] Comment on above: Performed By: #### B ETAMM, CMP, LIPA, CBCDIF ####[facility] [address] [place] [address] CO2 24 mmol/L Normal 22-30 [facility] Comment on above: Performed By: #### B ETAMM, CMP, LIPA, CBCDIF ####[facility] [address] [place] [address] Creatinine 0.65 mg/dL Normal 0.58-0.96 [facility] Comment on above: Performed By: #### B ETAMM, CMP, LIPA, CBCDIF ####[facility] [address] [place] [phone] eGFR (non-black) mL/min/{1.73_m2} Normal [facility] Comment on above: Performed By: #### B ETAMM, CMP, LIPA, CBCDIF ####[facility] [address] [place] [phone] Result Comment: eGFR (Estimated GFR) Units of measure: mL/min/1.73 meters squaredeGFR is derived from the reexpressed MDRD Study equation using the following parameters: serum creatinine, age, gender and race. The creatinine assay has been calibrated to be traceable to IDMS.An eGFR <60 mL/min/1.73m2 for >3 months is consistent with chronic kidney disease. Refer to KDOQI guidelines for clinical interpretation.In patients with unstable renal function, e.g. those with acute kidney injury, the eGFR may not accurately reflect actual GFR. Glucose mass conc 92 mg/dL Normal 74-99 [facility] Comment on above: Result Comment: The [place] Diabetes Association (ADA) provides guidance for cutoff values for fasting glucose and random glucose. The ADA defines fasting as no caloric intake for at least 8 hours. Fasting plasma glucose results between 100 to 125 mg/dL indicate increased risk for diabetes (prediabetes).Fasting plasma glucose results greater than or equal to 126 mg/dL meet the criteria for diagnosis of diabetes. In the absence of unequivocal hyperglycemia, results should be confirmed by repeat testing. In a patient with classic symptoms of hyperglycemia or hyperglycemic crisis, random plasma glucose results greater than or equal to 200 mg/dL meet the criteria for diagnosis of diabetes.Reference: Standards of Medical Care in Diabetes 2016, [place] Diabetes Association. Diabetes Care. 2016.39(Suppl 1). Performed By: #### B ETAMM, CMP, LIPA, CBCDIF ####[facility] [address] [place] [phone] Potassium molar conc 3.9 mmol/L Normal 3.7-5.1 [facility] Comment on above: Performed By: #### B ETAMM, CMP, LIPA, CBCDIF ####[facility] [address] [place] [phone] Protein 6.3 g/dL Normal 6.3-8.0 [facility] Comment on above: Performed By: #### B ETAMM, CMP, LIPA, CBCDIF ####[facility] [address] [place] [address] Sodium 140 mmol/L Normal 136-144 [facility] Comment on above: Performed By: #### B ETAMM, CMP, LIPA, CBCDIF ####[facility] [address] [place] [address] Urea nitrogen 5 mg/dL Low 7-21 [facility] Comment on above: Performed By: #### B ETAMM, CMP, LIPA, CBCDIF ####[facility] [address] [place] [address] Ferritinon 09-04-2017 Ferritin 43.0 ng/mL Normal 14.7-205.1 [facility] Comment on above: Performed By: #### B ETAMM, CMP, LIPA, CBCDIF ####[facility] [address] [place] [address] Folate, Serumon 09-04-2017 Folate, Serum >20.0 Normal >4.7 [facility] Comment on above: Result Comment: A re sult of > 20 ng/mL is not necessarilyindicative of a pathologic or treatablecondition: it reflects a limitation of thetest methodology.Assay reference range: 4.8 to 24.2 ng/mL.Suitable for detection of folate deficiency.Reference:Folate III (Folate III) [package insert V 1.0English].[facility], [place], [place]: May2015. Performed By: #### B ETAMM, CMP, LIPA, CBCDIF ####[facility] [address] [place] [address] Iron and TIBCon 09-04-2017 Iron 40 ug/dL Low 41-186 [facility] Comment on above: Performed By: #### B ETAMM, CMP, LIPA, CBCDIF ####[facility] [address] [place] [address] TIBC 195 ug/dL Low 232-386 [facility] Comment on above: Performed By: #### B ETAMM, CMP, LIPA, CBCDIF ####[facility] [address] [place] [phone] Transferrin Saturatn 21 % Normal 11-46 [facility] Comment on above: Performed By: #### B ETAMM, CMP, LIPA, CBCDIF ####[facility] Ijomwbrjae2844 [phone] Lipaseon 09-04-2017 Lipase 49 U/L Normal 16-61 [facility] Comment on above: Performed By: #### B ETAMM, CMP, LIPA, CBCDIF ####[facility] Lgwudrjvsk7310 [phone] NURSING PROGon 09-04-2017 NURSING PROG HNO ID: [id number] thor: Duncan (Rn) Eusebio, RNService: (none)Author Type: Registered NurseType: Nursing Progress NoteFiled: 09/04/2017 12:24 PMNote Text: Nursing Progress NotePatient Name: Elsa GuidoMRN: [id number] Location: [place] [address] _Daily Note:+ Salmonella resulted to Krissy Henson SPORTS REPORTER for GI groupThis note was completed by: Duncan Kaplan RN [facility] PROGRESSon 09-04-2017 PROGRESS HNO ID: [id number] thor: Dalila Gilmore, MDService: [facility] MedicineAuthor Type: PhysicianType: Progress NotesFiled: 09/04/2017 4:15 PMNote Text:SERVICE DATE: 09/04/2017SERVICE TIME: 4:15 PMHOSPITAL MEDICINE PROGRESS NOTENIGHT AND WEEKEND COVERAGE: Nights: Please contact pager [phone].Reason for Admission/Observation: Intractable nausea vomiting anddiarrheaHOSPITAL DAY ZERO: 2?Presentation: 26-year-old female presents with abdominal pain, nausea,vomiting, and diarrhea. Symptoms initially began approximately one weekago. They became worse yesterday. Per her she cannot keepanything down. She was seen at a hospital near [facility] approximately[facility] days ago and was told that she needs to see a surgeon as an outpatientto further evaluate her gallbladder. Per that she had a right upperquadrant ultrasound done at [facility] She reports her symptoms have become worse. She's had increasednausea, vomiting, and diarrhea.Consultants:Dr. Holcomb. WANEKDisposition: HomeSUBJECTIVEInterval HPI:No chest pain or shortness of breath. The patient for 4years as had recurrent bouts of diarrhea which has been treated asulcerative colitis in the past. All her records are in [place]. She alsohas had recurrent vomiting and right upper quadrant pain. She's beenfound to have colitis by CT scan along with multiple gallstones. Her painis improved but still present on examination.OBJECTIVEReviewed lines, drains, AND airways. Need to be continued .BP 96/52 Pulse 66 Temp 36.8 ?C (98.2 ?F) (Oral) Resp 16 Ht 154.9cm (5' 1) Wt 54.9 kg (121 lb 1.6 oz) LMP 08/02/2017 SpO2 93% BMI22.88 kg/s7TQDGBBC: Alert, no distress, cooperativeNECK: Jugulovenous distention no Supple Yes HJR noLUNGS: Tracheal tug (recruitment of all accessory muscles) - no Prolonged expiratory phase - no Adventitious sounds -noCARDIAC: Rhythm:Regular rhythm Rate: normal S1: normal S2: physiologically split Gallop - no Murmur no Heave noABDOMEN: Negative findings: umbilicus normal, bowel sounds normal, nobruits heard, spleen non-palpable and Positive findings: tenderness: mildlocation: RUQ and LLQ - there is no rigidity or guardingEXTREMITIES:no edema No cordsNEURO: Grossly normal cognition, motor function, and cranial nerves.DATA:Diagnostic tests reviewed for today's visit:Most recent labsOverview was reviewed. Pulse ox-93% room air - one reading o/w all 97-98%Most recent-ultrasound/CTCARE COORDINATION:No Patient Care Coordination Note on file.ASSESSMENT AND PLANAssessment AND Plan, all Hosp ProblemsActive Hospital Problems as of 09/04/2017 Noted - Resolved A Colitis, acute 09/03/2017 - Present Current Assessment AND PlanAssessment: 4 years duration with intermittent symptoms treated asulcerative colitis in the past records are pending from [place] positiveoccult blood and lactoferrin. Negative Giardia and cryptosporidium and C.difficilePLAN:Per GI service B Calculus of gallbladder without cholecystitis 09/03/2017 - Present Current Assessment AND PlanAssessment: Multiple stones with recurrent vomiting concerning for biliarycolicPLAN:HIDA scan pending C Diarrhea of presumed infectious origin 09/03/2017 - Present Current Assessment AND PlanAssessment: Stool studies are sentPLAN:plan from GI D Hypotension 09/03/2017 - Present Current Assessment AND PlanAssessment: Lactate is negative and she is responding with improvement ofher symptoms with IV hydrationPLAN:Continue hydration M Ulcerative colitis without complications (HCC) 09/03/2017 - Present Current Assessment AND PlanAssessment: similar episodes of diarrhea, N/V, 4 years duration recurrentsymptomsPLAN:Colonosc opy plannedPlan of care discussed with: Patient, RN and Consultants: Dr. ShahATURE: Dalila Gilmore MD PATIENT NAME: Elsa GanTE: September 04, 2017 : 4:15 PM PAGER/CONTACT #: Normal [facility] Vitamin B12on 09-04-2017 Cobalamins (Vitamin B12) 1222 pg/mL Normal 232-1245 [facility] Comment on above: Performed By: #### B ETAMM, CMP, LIPA, CBCDIF ####[facility] [address] [place] [address] Basic Metabolic Panlon 09-03 Anion gap 11 mmol/L Normal 9-18 [facility] Comment on above: Performed By: #### B MP ####[facility] [address] [place] [address] Calcium 7.8 mg/dL Low 8.5-10.2 [facility] Comment on above: Performed By: #### B MP ####[facility] [address] [place] [address] Chloride 106 mmol/L High 97-105 [facility] Comment on above: Performed By: #### B MP ####[facility] [address] [place] [address] CO2 25 mmol/L Normal 22-30 [facility] Comment on above: Performed By: #### B MP ####[facility] [phone] Creatinine 0.61 mg/dL Normal 0.58-0.96 [facility] Comment on above: Performed By: #### B MP ####[facility] F[address]none6012 [phone] eGFR (non-black) mL/min/{1.73_m2} Normal [facility] Comment on above: Performed By: #### B MP ####[facility] [address]oui[address] Result Comment: eGFR (Estimated GFR) Units of measure: mL/min/1.73 meters squaredeGFR is derived from the reexpressed MDRD Study equation using the following parameters: serum creatinine, age, gender and race. The creatinine assay has been calibrated to be traceable to IDMS.An eGFR <60 mL/min/1.73m2 for >3 months is consistent with chronic kidney disease. Refer to KDOQI guidelines for clinical interpretation.In patients with unstable renal function, e.g. those with acute kidney injury, the eGFR may not accurately reflect actual GFR. Glucose mass conc 107 mg/dL High 74-99 [facility] Comment on above: Result Comment: The [place] Diabetes Association (ADA) provides guidance for cutoff values for fasting glucose and random glucose. The ADA defines fasting as no caloric intake for at least 8 hours. Fasting plasma glucose results between 100 to 125 mg/dL indicate increased risk for diabetes (prediabetes).Fasting plasma glucose results greater than or equal to 126 mg/dL meet the criteria for diagnosis of diabetes. In the absence of unequivocal hyperglycemia, results should be confirmed by repeat testing. In a patient with classic symptoms of hyperglycemia or hyperglycemic crisis, random plasma glucose results greater than or equal to 200 mg/dL meet the criteria for diagnosis of diabetes.Reference: Standards of Medical Care in Diabetes 2016, [place] Diabetes Association. Diabetes Care. 2016.39(Suppl 1). Performed By: #### B MP ####[facility] [phone] Potassium molar conc 3.9 mmol/L Normal 3.7-5.1 [facility] Comment on above: Performed By: #### B MP ####[facility] [address] [place] [phone] Sodium 142 mmol/L Normal 136-144 [facility] Comment on above: Performed By: #### B MP ####[facility] [address] [place] [address] Urea nitrogen 4 mg/dL Low 7-21 [facility] Comment on above: Performed By: #### B MP ####[facility] [address] [place] [address] C difficile PCRon 09-03-2017 C difficile PCR Negative Normal [facility] Comment on above: Performed By: #### B ETAMM, CMP, LIPA, CBCDIF ####[facility] [address] [place] [address] C-Reactive Proteinon 018 C reactive protein (CRP) 1.4 mg/dL High <0.9 [facility] Comment on above: Performed By: #### C RP ####[facility] [address] [place] [address]#### WSR ####[facility] [address] [place], [place] [phone] CASE MGT INIT ASSESon 2017 CASE MGT INIT ASSES HNO ID: [id number]: Yanely (Rn) EDDIE Rodriguezervice: Case ManagementAuthor Type: Registered NurseType: Care Mgt Initial AssessmentFiled: 09/03/2017 11:53 AMNote Text:CARE MANAGEMENT: ASSESSMENT AND DISCHARGE PLANSERVICE DATE: 09/03/2017SERVICE TIME: 11:29 AMPRIMARY CARE PHYSICIAN:No primary care provider on file. (Requested [facility] to assign new PCP,patient agreeable)Phone: NoneADMISSION STATUS: InpatientNeeds Prior to Discharge: To Be DeterminedMEDICAL:Patient/Repr esentative Stated Goals:To have reduction in painTo have reduction in symptomsTo improve my functional statusTo return home to life as it wasHealth Insurance: N/AHealth Issues Impacting Discharge Plan: Newly diagnosed Gallstones,ColitisLast Admission Date: noneIs this Within the Past 30 days? NoHealth Literacy:1. How often do you need to have someone help you when you readinstructions, pamphlets, or other written material from your doctor orpharmacy? Never - 12. How confident are you filling out medical forms by yourself? Extremely- 1If Patient scores > 3 on either question, the following interventions wereput into place:Patient did not score > 3FUNCTIONAL AND COGNITIVE/BEHAVIORALPRIOR TO ADMISSION:Baseline Mental Status: Alert AND Oriented, Person, Place , Time andSituationFunctional Status: IndependentDoes Patient Currently Receive Any Community Services or Home Care? NoneEquipment Prior to Admission: NoneHas the Patient Been in a Assisted Facility in the Past 30 days? NoSOCIAL:Living Arrangement: HomeLives With: SpouseFinancial Resources: Faith CommunityPrimary Contact: No emergency contact information on file.Supportive: YesOther Important Patient Contacts: NoneCaregiver Assessment:Caregiver is ready, willing and able to meet the patient's needs asrecommended by the inter-professional team? YesPatient's transition needs and plan for meeting these needs: Follow upwith new PCPDoes the patient have an acute stroke diagnosis, or has the patient had astroke during this admission? NoMedication Adherence:I am convinced of the importance of my prescription medication: Agreecompletely - 0, not currently on prescribed medicationI worry that my prescription medication will do more harm than good to meDisagree completely - 0I feel financially burdened by my [id number] expenses for myprescription medication: Disagree completely - 0Patient is categorized as low risk < 2Are you interested in bedside delivery of your medications? NoFood Concerns:In the Last Month, Have You had Trouble Getting Food? No trouble gettingfoodDuring the Last Month, Have You Worried Whether Your Food Would Run OutBefore You Had Enough Money to Buy More? NoIs the Patient Psychosocially Complex? NoASSESSMENT AND PLAN:Medical Needs: New colitis dx, possible surgical interventionPsychosocial Needs: NoneFREEDOM OF CHOICE EXPLAINED:Yes - CM met with patient AND spouse at bedside to discuss possiblillity ofsurgical intervention and need to follow up with surgeon or PCP after dc.Patient does not have PCP, agreeable for CM to have one appointed for her,sent task to [facility] to obtain one at [facility].POTENTIAL TRANSITION PLANSHome - Patient is Faith and has community supportSIGNATURE: Yanely Rodriguez RN PATIENT NAME: Elsa GuidoDATE: September 03, 2017 : 11:29 AM PAGER/CONTACT #: [phone] [facility] CONSULTon 09-03-2017 CONSULT HNO ID: [id number] thor: Joie Santiago) LawsonrerService: General SurgeryLovelace Regional [facility], [place]ho Type: Nurse PractitionerType: ConsultsFiled: 09/03/2017 1:10 PMNote Text: Attes tation signed by David Stewart at 09/03/2017 3:55 PMPatient seen and examinedAgree with SAMSON notes26 yo female with H/o Ulcerative colitis on no meds. Presents with Right sidedpain along w N/V and frequent diarrheaAwaiting HIDA and stool studiesGI also following - obtaining old records AND ? Repeat colonoscopyWill cont to follow - awaiting all resultsStpedro Stewart MD CONSULT: General Surgery SERVICESERVICE DATE: 09/03/2017SERVICE TIME: 12:43 PMREASON FOR CONSULT: CholelithiasisREQUESTING PHYSICIAN: Elsy Chin [facility] PH[facility]ICIAN: No primary care provider on file.SubjectiveMs. Guido is a 26 year old Faith female who presents for abdominal painwith nausea, vomiting and diarrhea. She was dx with ulcerative colitis 4years ago but does not take prescribed medications, she is usingFuciodan, Aloe Vera and Choraphyll per patient's . Over the pastweek she has developed daily nausea with bloating after meals, she vomitsat least once per day, diarrhea up to 6 times daily (she is unaware if thestool contains blood or mucous), weight loss, anorexia, and initially shefelt she had a fever. She has epigastric and RUQ pain that radiates intoher back. She has had similar symptoms after the of each of her 4children, the last being in June, that child 9 days afterbirth They await autopsy results and only know he had a high fever. Shealso develops a cough with each episode as well. Her abdomen is soft,tender in the epigastric region and RUQ, she has a + Nacsimento's sign, someguarding, no rebound. Hypoactive bowel sounds. U/S shows Findingssuggestive of contracted gallstone filled gallbladder. ?No biliary ductdilatation. CT Colonic mural thickening from the cecum through thedescending colon and possibly involving the proximal sigmoid colon. ?Thesechanges could represent infectious/inflammatory colitis. ?Bowel ischemiacan have a similar appearance. ?Recommend correlation with clinicalfindings.Colonic mural thickening from the cecum through the . ?Enlargedleft ovarian vein and associated increased vascularity in the left adnexalregion. ?This appearance can be seen with the pelvic congestionsyndrome. ?Recommend correlation with clinical findings. . Lipase was63, CRP 1.4.Impression/Recommendations Active Problems: Colitis, acute POA: Yes Assessment AND Plan: IV Fluids, pain control, bowel rest, managementper GI Calculus of gallbladder without cholecystitis POA: Yes Assessment AND Plan: Continue to monitor symptoms and differentiatebetween colitis flare and gall bladder.Resolved Problems: * No resolved hospital problems. *No past medical history on file.No past surgical history on file.No family history on file.Social HistorySubstance Use Topics- Smoking status: Never Smoker- Smokeless tobacco: Never Used- Alcohol use NoNo prescriptions prior to admission.Current hospital medications:NaCl 0.9% iv infusion 75 mL/hr INTRAVENOUS CONTINUOUSondansetron orally disintegrating 4 mg tab(s) (ZOFRAN ODT) 4 mg ORAL q 6 HPRNondansetron (PF) 4 mg injection (ZOFRAN) 4 mg INTRAVENOUS q 6 H PRNiv contrast (radiology procedure) INTRAVENOUS DIRECTED PRNAllergies As of Date: 09/02/2017(No Known Allergies)Fully Assessed 02/27/2018COMPLETE REVIEW OF SYSTEMS:PAIN ASSESSMENT: CURRENTLY HAVING PAIN; see HPIGENERAL: Unintentional weight loss, FatigueHEENT: Negative for frequent or significant headaches, No changes inhearing or vision, no nose bleeds or other nasal problemsNECK: Negative for lumps, goiter, pain and significant neck swellingRESPIRATORY: Cough; moistCARDIOVASCULAR: Negative for chest pain, leg swelling, hypertension, CHFor palpitationsGI: No nausea, vomiting, or diarrhea and See HPIGU: No history of dysuria, frequency or incontinenceGYN: LMP unsure, 2 months post partumMUSCULOSKELETAL: Negative for joint pain or swelling, back pain or musclepainSKIN: Negative for lesions, rash, and itchingPSYCH: Negative for sleep disturbance, mood disorder and recentpsychosocial stressorsHEMATOLOGY/LYMPHOLOGY : Negative for prolonged bleeding, bruising easily orswollen nodesENDOCRINE: Negative for cold or heat intolerance, polyuria, polydipsia andgoiterNEURO: No history of headaches, syncope, paralysis, seizures or tremorsObjectivePHYSICAL EXAM:GENERAL: Alert, no distress, cooperativeSKIN: Skin color, texture, turgor normal. No rashes or lesions.HEAD/SINUSES: No significant findingsEYES: PERRLA, EOMIEARS: External ears normal, canals clearNOSE: Nares normal. Septum midline.OROPHARYNX: Lips, mucosa, and tongue normal. Teeth and gums normal.Oropharynx normal.NECK: No jugulovenous distention, No carotid bruits, Carotid pulse normalcontour, SuppleBACK: Back symmetric, Normal curvature, ROM normal, No CVAT.LUNGS: Lungs clear to auscultation, Good diaphragmatic excursionCARDIAC: Normal S1 and S2; no rubs, murmurs, or gallopsBREASTS: Symmetrical to inspection., No dimpling or skin changes., Normalconsistency, no palpable masses., Normal nipples without discharge., Noaxillary lymphadenopathy.ABDOMEN: See HPIEXTREMITIES: Extremities normal, no deformities, edema, clubbing or skindiscoloration. Good capillary refill., No ulcersNEURO: Gait normal. Reflexes normal and symmetric. Sensation grosslyintact, Cranial nerves II-XII intactPULSES: 2+ radial, 2+ carotidRECTAL: Exam deferredPatient Vitals for the past 24 hrs: BP Temp Temp src Pulse Resp SpO2 Height Exhotn88/28/18 0800 92/54 36.7 ?C (98 ?F) Oral 74 16 98 % - -09/03/17 0510 90/51 - - 69 - - - -09/03/17 0353 (!) 77/45 36.7 ?C (98.1 ?F) Oral (!) 53 16 - - -09/02/17 2348 92/55 36.9 ?C (98.4 ?F) Oral 79 16 96 % - -09/02/17 2126 102/57 - - 76 16 98 % - -09/02/17 2035 112/72 - - 88 - 97 % - -09/02/17 1726 106/67 (!) 37.5 ?C (99.5 ?F) Oral (!) 93 20 98 % 154.9 cm(5' 1) 55.3 kg (122 lb)Body mass index is 23.05 kg/(m2).DATA:Diagnostic tests reviewed for today's visit:Most recent labs and imaging results.SIGNATURE: Joie Rausch CNP PATIENT NAME: Elsa GuidoDATE: September 03, 2017 : 12:43 PM PAGER: [phone] [facility] CONSULT PROGon 09-03-2017 CONSULT PROG HNO ID: [id number] thor: Diana WaldronbService: GastroenterologyAuthor Type: PhysicianType: Consult Progress NoteFiled: 09/03/2017 11:11 AMNote Text:GASTROENTEROLOGY CONSULT NOTEPATIENT NAME: Elsa GuidoMRN: [id number] DATE: September 03, 2017SERVICE TIME: 8:55 AMPRIMARY CARE PHYSICIAN: No primary care provider on file.ATTENDING PHYSICIAN: Dr. Cowart FOR ADMISSION: DiarrheaREASON FOR CONSULTATION: Hx UC with questionable flareHPI: This is a 26 year old Faith female with a past medical historysignificant for UC (dx ~ 2013 per patient) previously on Prednisone andApriso x 4 months after diagnosis - currently on no maintenancemedications and known gallstones who presented to [place] [facility] 09/02/17 withabdominal pain, nausea, vomiting, and diarrhea. Symptoms initially beganapproximately 1.5 weeks ago. Reports abdominal pain to RUQ with radiationto back intermittently over the past few years. Normally passes 2-6looser BMs per day but over the past 1.5 weeks she states has been havingup to 8 stools per day. Denies hematochezia or melena. Associated feversand chills. Has been having 2-3 episodes of emesis daily over the pastweek. Emesis described as slimy green. No hematemesis or CGE. Alsoreports some mid abdominal pain that is intermittent and described assharp pains that is precipitated by a bowel movement and revlieves after aBM. States this pain is worsened with eating popcorn, nuts and spicyfoods. Her abdominal pain became worse yesterday.Apparently was seen at a hospital near [facility] approximately 4 daysago and was told that she needs to see a surgeon as an outpatient tofurther evaluate her gallbladder and has a scheduled appointment in September. Patient's reports that her pain became worse and did not feelthat they could wait until then and [facility]. Denies sick contacts, recent travel or recentantibiotic use. Labs significant for K 3.6 and mildly elevated lipase 63.LFTs and CBC was normal. A RUQ US was obtained which revealed acontracted gallstone filled gallbladder. ?No biliary duct dilatation. ACT AP was significant for colonic mural thickening from the cecum throughthe descending colon and possibly involving the proximal sigmoid colon.?These changes could represent infectious/inflammatory colitis. ?CT alsonoted to have an enlarged left ovarian vein and associated increasedvascularity in the left adnexal region. ?This appearance can be seen withthe pelvic congestion syndrome. She was admitted for diarrhea and a GIconsult has been requested for hx UC with questionable flare. Sinceadmission to the hospital she reports passing 4 loose stools but hasflushed and not notified the nursing staff. Nausea is currently improvedand states last emesis was yesterday. The patient does feel that she isbetter today than at time of admission. reports similar symptoms ~1 year ago that required admission at [facility]. Again, she waspreviously recommended use of Apriso and Prednisone ~ 4 years ago at timeof UC diagnosis but states she only took for 4 months and then stoppedusing because she didn't want to take the medicine. Her lacho has been seen by Dr. Pietro Pablo who helped wean off themedications. She denies any heartburn, dysphagia, odynophagia. Has had adecreased appetite over the past 1-2 weeks and states she has lost 2 lbsover that time period. Denies ASA or NSAID use. reports thatpatient is always tired and doesn't know what its like to feel good. Antonella, patient delivered a son in June 2017 who at 7 daysold.ALLERGIES:NKDAPAST MEDICAL HISTORY:Ulcerative colitis- Diagnosed ~ SURGICAL HISTORY:NoneMEDICATIONS:Prior to Admission Medications:No prescriptions prior to admission.Current Hospital Medications:Current hospital medications:NaCl 0.9% iv infusion 75 mL/hr INTRAVENOUS CONTINUOUSondansetron orally disintegrating 4 mg tab(s) (ZOFRAN ODT) 4 mg ORAL q 6 HPRNondansetron (PF) 4 mg injection (ZOFRAN) 4 mg INTRAVENOUS q 6 H PRNiv contrast (radiology procedure) INTRAVENOUS DIRECTED PRNFAMILY HISTORY:No significant family history of GI related diseases or malignanciesSOCIAL HISTORY:Marital status: marriedChildren: 4 children (3 living. 1 son at age 1 week- June2017)- vaginal birthsAlcohol use: DeniesTobacco use: DeniesREVIEW OF SYSTEMS:CONSTITUTIONAL: No fevers, chills, night sweats, unintended weight lossHEENT: Denies frequent or severe headachesEYES: No diplopia or blurry visionCARDIOVASCULAR: No chest pain, dyspnea, palpitations, orthopnea, PND,ankle edemaPULM: No dyspnea, unexplained coughGI: Per HPIGU: No new urinary complaints, including; dysuria, gross hematuria orpyuriaNEURO: No dizziness, lightheadedness or vertigoMUSC/SKEL: No new joint pain, swelling, or erythemaPSYCH: No concerns regarding depression, anxiety or panicINTEGUMENTARY: No new skin changes (rash, new or changing mole, newgrowth)PHYSICAL EXAM:Patient Vitals for the past 24 hrs: BP Temp Temp src Pulse Resp SpO2 Height Gqncty63/28/18 0800 92/54 36.7 ?C (98 ?F) Oral 74 16 98 % - -09/03/17 0510 90/51 - - 69 - - - -09/03/17 0353 (!) 77/45 36.7 ?C (98.1 ?F) Oral (!) 53 16 - - -09/02/17 2348 92/55 36.9 ?C (98.4 ?F) Oral 79 16 96 % - -09/02/172125 102/57 - - 76 16 98 % - -09/02/172034 112/72 - - 88 - 97 % - -09/02/17 1726 106/67 (!) 37.5 ?C (99.5 ?F) Oral (!) 93 20 98 % 154.9 cm(5' 1) 55.3 kg (122 lb)Body mass index is 23.05 kg/(m2).GENERAL: Frail. Alert AND oriented x 3. Cooperative. NADEYES: No scleral icterusSKIN: [place] in color. No jaundiceLUNGS: Clear to auscultation anteriorlyCARDIAC: RRRABDOMEN: BS x 4. Abdomen soft, non distended. RUQ, RLQ and epigastrictenderness- most pronounced to RUQ and epigastrium. No palpable masses ororganomegaly. No guarding or rebound tenderness elicitedEXTREMITIES: No upper or lower extremity edemaLABS:Diagnostic tests reviewed for today's visit:CBC, Coags, BMP, Mg, PhosRecent Labs 09/03/1802WBC -- -- 9.41HB -- -- 11.7HCT -- -- 36.3PLT -- -- 367NA -- 142 141K -- 3.9 3.6*CHLOR -- 106* 103CO2 -- 25 25BUN -- 4* 5*CREAT -- 0.61 0.65GLUC -- 107* 97CA -- 7.8* 9.1MG 2.0 -- --Liver Function, Amylase, AND LipaseRecent Labs TPROT 7.7ALB 4.0ALT <5*AST 13ALKPHOS 70TBILI 0.2LIPASE 63*MISC LABSComponent Latest Ref Rng AND Units 09/02/2017 09/03/2017Color Yellow YellowAppearance (U) Clear ClearGlucose, Urine Negative mg/dL NegativeBilirubin, Urine Negative NegativeKetones, Urine Negative NegativeSpecific [place], Ur 1.001 - 1.029 1.015Hemoglobin/Blood,Ur Negative Small (A)pH, Urine 5.0 - 8.0 5.5Protein, Urine Negative mg/dL Trace (A)Urobilinogen 0.2 - 1.0 0.2Nitrites Negative NegativeLeukest Negative NegativeHCG, Qualitative Negative NegativeLactate 0.5 - 2.2 mmol/L 0.1HJYZHWKVA6/27/18 RUQ USFINDINGS: There is a curvilinear hyperechoic lying along the gallbladder,with acoustic shadowing distally suggesting a wall echo shadow sign. ?Thislikely represents gallstones within a contracted gallbladder. ?No overtgallbladder wall thickening appreciated. ?The proximal common ductdiameter is within normal limits. It measures 2 mm. The sonographerreports a negative sonographic Nascimento sign. Visible portions of the liver,both kidneys, spleen and pancreas are unremarkable. ?No fluid collectionsare seen. Evaluation limited by numerous coughing episodes limitingscanningIMPRESSION: 1. ?Findings suggestive of contracted gallstone filledgallbladder. ?No biliary duct dilatation.09/02/17 CT AP with IV contrastLower chest: Negative.Peritoneum/mesentery: There is no free intraperitoneal air or significantfree fluid.Liver: Normal.Biliary: Normal.Spleen: Normal.Pancreas: Normal.Kidneys/urinary: Normal.Adrenals: Normal.GI tract: Colonic mural thickening and edema noted from the level of thececum through the descending colon and possibly extending into the sigmoidcolon but the sigmoid is more difficult to evaluate in this patient. ?Nogas bubbles are seen within the thickened bowel wall. Also no gas bubblesin the mesenteric vessels or the portal venous system. Small bowel showsseveral short segments of dilation, some with air-fluid levels. ?Thisincludes a dilated fluid-filled terminal ileum. Stomach is unremarkable.Appendix is visualized in the right lower quadrant and does not appearinflamed.Lymph nodes: Negative.Vasculature: Within normal limits.Pelvis: No pelvic masses or fluid collections. ?Uterus in a retrovertedposition. There is also asymmetric increased vascularity in the lefthemipelvis which is continuous with an enlarged left ovarian vein.Bones/soft tissue: Within normal limits.IMPRESSION:1. ?Colonic mural thickening from the cecum through the descending colonand possibly involving the proximal sigmoid colon. ?These changes couldrepresent infectious/inflammatory colitis. ?Bowel ischemia can have asimilar appearance. ?Recommend correlation with clinical findings.2. ?Enlarged left ovarian vein and associated increased vascularity in theleft adnexal region. ?This appearance can be seen with the pelviccongestion syndrome. ?Recommend correlation with clinical findings.MOST RECENT EGDNo previousMOST RECENT COLONOSCOPY~ 4 years ago at [facility] done by Dr. Pietro Salmon1- Intractable nausea and vomiting x 1 week2- Acute on chronic diarrhea3- Cholelithiasis4- CT evidence of colonic mural thickening from cecum through thedescending colon and possibly involving the proximal sigmoid colon-infectious vs inflammatory colitis5- Previous hx UC on no maintenance medicationsPLAN- Obtain stool studies to r/o infectious colitis- Check ESR and CRP- Stool log- Obtain colonoscopy/pathology report from [facility]- Obtain HIDA scan- Consult surgery- Zofran prn- CBC, CMP, lipase in am- Full liquid diet for now- May need repeat colonoscopy pending clinical course, review of priorrecords and results of stool studies- Further recommendations pending clinical courseThank you for the opportunity to participate in the care of this patient.I will continue to follow with you.SIGNATURE: DianaCARINE DownsATE: September 03, 2017TIME: 8:55 AM Normal [facility] ED NOTEon 09-03-2017 ED NOTE HNO ID: [id number] Author: Millie (Sachin) SACHIN Daniel Service: (none) Author Type: Registered Nurse Type: ED Notes Filed: 09/02/2017 11:17 PM Note Text: Report called to Latisha STEPHENSON Normal [facility] Enteric Bact Pnl PCRon 09-03 Campy jejun/coli DNA Not Detected Normal [facility] Comment on above: Performed By: #### B ETAMM, CMP, LIPA, CBCDIF ####[facility] [address] [place], [place] [phone] Salmonella spp. DNA Detected Normal [facility] Comment on above: Result Comment: Aparna chase to Duncan Cuenca at 1220 on 3.1.18 J.Mast Performed By: #### B ETAMM, CMP, LIPA, CBCDIF ####[facility] [address] [place] [address] Shiga toxin gene(s) Not Detected Normal [facility] Comment on above: Performed By: #### B ETAMM, CMP, LIPA, CBCDIF ####[facility] [address] [place] [address] Shigella/EIEC DNA Not Detected Normal [facility] Comment on above: Performed By: #### B ETAMM, CMP, LIPA, CBCDIF ####[facility] [address] [place] [address] Fecal Lactoferrinon 09-03-19 18 Fecal Lactoferrin Sp. Request/Comment: - Specimen received in sterile container. Test Result - Positive for lactoferrin, which may indicate presence of fecal white blood cells Critically abnormal [facility] Comment on above: Performed By: #### B ETAMM, CMP, LIPA, CBCDIF ####[facility] [address] [place] [address] HISTORY PHYSICALon 8 HISTORY PHYSICAL HNO ID: [id number] thor: Jorge LundberghisundaramService: General Internal MedicineAuthor Type: PhysicianType: HANDPFiled: 09/03/2017 6:15 AMNote Text:[facility] MEDICINEHISTORY AND PHYSICAL EXAMSERVICE DATE: 09/02/2017SERVICE TIME: 11.35 PMPrimary Care Physician: No primary care provider on file.NIGHT AND WEEKEND COVERAGE:Nights: Please contact pager [phone].SubjectiveCHIEF COMPLAINT: Diarrhea, N/VHPI: 26-year-old female with H/o ?Ulcerative Colitis presented to the EDtoday with complaints of progressing cramping abdominal pain, nausea,vomiting, and diarrhea x > 10 days. For the past 2-3 days she had beenfeeling more persistently nauseous and was not able to keep any oral feedsdown. She was seen at a hospital near [facility] 4 days ago and was toldthat she needs to see a surgeon as an outpatient to further evaluate hergallbladder.During her last she had similar symptoms and underwent aColonoscopy, as findings were suggestive of Ulcerative colitis, she wastreated with prednisone for 3 weeks following which her symptoms improved.Had no GI follow up after that.In ED sh ehad a low grade fever, vitals stable. Basic labs wereunremarkable except for low normal K. CT ABD revealed Colonic muralthickening from the cecum through the descending colon and possiblyinvolving the proximal sigmoid colon, representing infectious/inflammatorycolitis . RUQ US showed Findings suggestive of contracted gallstone filledgallbladder. ?No biliary duct dilatation. She is admitted for furtherevaluation and treatment.No past medical history on file.No past surgical history on file.No family history on file.Social HistorySubstance Use Topics- Smoking status: Never Smoker- Smokeless tobacco: Never Used- Alcohol use NoMEDICATIONS: Reviewed(Not in a hospital admission)ALLERGIESNo Known AllergiesREVIEW OF SYSTEM:GENERAL:Positive for chills and fever, No weight loss, malaiseHEENT: Negative for frequent or significant headaches, No changes inhearing or vision, no nose bleeds or other nasal problemsNECK: Negative for lumps, goiter, pain and significant neck swellingRESPIRATORY: Negative for cough, hemoptysis, wheezing, dyspnea orshortness of breathCARDIOVASCULAR: Negative for chest pain, leg swelling, CHF or palpitationsGI: Positive for nausea, vomiting, diarrhea, decreased PO intakeGU: No history of dysuria, frequency or incontinenceMUSCULOSKELETAL: Negative for joint pain or swelling, back pain or musclepainSKIN: Negative for lesions, rash, and itchingPSYCH: Negative for sleep disturbance, mood disorder and recentpsychosocial stressorsHEMATOLOGY/LYMPHOLOGY : Negative for prolonged bleeding, bruising easily orswollen nodesENDOCRINE: Negative for cold or heat intolerance, polyuria, polydipsia andgoiterNEURO: No history of headaches, syncope, paralysis, seizures or tremorsObjectivePHYSICAL EXAM:BP 102/57 Pulse 76 Temp (Src) 99.5 (Oral) Resp 16 Ht 5' 1 (1.55m) Wt 122 lb (55.3kg) SpO2 98% LMP 08/02/2017 BMI 23.06 kg/(m2).Physical Exam Performed:GENERAL: Alert, no distress, cooperativeSKIN: Skin color, texture, turgor normal. No rashes or lesions.HEAD/SINUSES: No significant findingsEYES: PERRLA, EOMINOSE: Nares normal. Septum midline.OROPHARYNX: Lips, mucosa, and tongue normal. Teeth and gums normal.Oropharynx normal.NECK: No jugulovenous distention, No carotid bruits, Carotid pulse normalcontour, SuppleBACK: Back symmetric, Normal curvature, No CVAT.LUNGS: Lungs clear to auscultation, Good diaphragmatic excursionCARDIAC: Normal S1 and S2; no rubs, murmurs, or gallopsABDOMEN: Abdomen soft, non-tender, BS normal, No masses or organomegalyEXTREMITIES: Extremities normal, no deformities, edema, clubbing or skindiscoloration. Good capillary refill., No ulcersNEURO: Grossly normal cognition, motor function, and cranial nervesIII-XIIPULSES: 2+ radial, 2+ posterial tibialLines, Drains, and Airways Line Peripheral 09/02/172034 Left Antecubital 20 Gauge less than 1 dayDATA:Diagnostic tests reviewed for today's visit:Most recent labsMost recent imagingAssessment/PlanActive Problems:Infectious/Inflammato ry Colitis:?Ulcerative Colitis Flare:She had similar episode of diarrhea, N/V, a year back during andwas treated as UCShe became hypotensive in RNFcheck lactateSent stool Cx, defer CDiff testing for nowDefer ABx for nowConsult GI for possible colonoscopyCLear liquid dietIVFNausea controlMonitor and replace electrolytesPain controlCholelithiasis:RUQ US revealed contracted GB with gallstones, ?No biliary ductdilatation.Clinically neg nascimento SignMonitorHypotension:She is asymptomaticCheck lactateImproved with IVF bolusVTE Prophylaxis: Early AmbulationDisposition: HomePlan of care discussed with: Patient, Family/Other: at bedside,Emergeny Room Physician and RNSIGNATURE: Jorge Malik MD PATIENT NAME: Elsa Henry: September 02, 2017 : 11:44 PM PAGER/CONTACT #: [phone] [phone] Normal [facility] Lactateon 09-03-2017 Lactate 0.5 mmol/L Normal 0.5-2.2 [facility] Comment on above: Performed By: #### L ACT ####[facility] [address] [place], [place] [phone] Magnesiumon 09-03-2017 Magnesium 2.0 mg/dL Normal 1.7-2.3 [facility] Comment on above: Performed By: #### M G1 ####[facility] [address] [place] [phone] Misc Send Out Teston 018 Test SALMONELLA, ISOLATE (STOOL) Normal [facility] Comment on above: Performed By: #### B ETAMM, CMP, LIPA, CBCDIF ####[facility] [address] [place] [phone] Test Results View results in Scan sepideh Documents link when available. Normal [facility] Comment on above: Performed By: #### B ETAMM, CMP, LIPA, CBCDIF ####[facility] [phone] NM HEPATOBILIARY W EF AND/OR RXon 09-03-2017 NM HEPATOBILIARY W EF AND/OR RX * * *Final Report* * *DATE OF EXAM: Sep 03 2017 3:20PM SAI 0021 - NM HEPATOBILIARY W EF AND/OR RX / REASON: Nausea and vomiting--Cholelithiasis * * * * Physician Interpretation * * * * HEPATOBILIARY SCAN WITH GALLBLADDER EJECTION FRACTION:CLINICAL HISTORY: 26 year old patient with history of nausea/vomiting, cholelithiasis.TECHNIQUE:5.5 mCi Tc-99m Choletec IV, followed by 60 minutes of abdominal imaging.8 ounces Ensure plus PO, followed by additional 45 minutes of imaging.COMPARISON: Abdomen CT and right upper quadrant ultrasound dated 09/02/2017RESULT:There is prompt and homogeneous uptake by the liver, which appears grossly normal in size and shape.Gallbladder activity is visualized by 13 minutes, indicating cystic duct patency. Proximal small bowel activity is noted by 60 minutes, indicating common bile duct patency.After Ensure plus was administered there is prompt emptying from the gallbladder with a calculated gallbladder ejection fraction of 96% (normal > 35%).IMPRESSION:1. PATENT CYSTIC AND COMMON BILE DUCTS. NO EVIDENCE OF ACUTE CHOLECYSTITIS.2. NORMAL GALLBLADDER EJECTION FRACTION. NO EVIDENCE OF CHRONIC CHOLECYSTITIS.Workers Compensation Consultant : BELLA Transcribe Date/Time: Sep 04 2017 9:23ADictated by : AMERICO WEAVER MDThirosa elena examination was interpreted and the report reviewed and electronically signed by: GISSELLE AVILES MD on Sep 04 2017 11:12AM [id number] Normal [facility] Occult Blood Screenon 2017 Occult Blood Screen Positive Critically abnormal [facility] Comment on above: Performed By: #### B ETAMM, CMP, LIPA, CBCDIF ####[facility] [address] [place] [address] Occult Blood Source: Stool Normal [facility] Comment on above: Performed By: #### B ETAMM, CMP, LIPA, CBCDIF ####[facility] [address] [place] [address] Ova and Parasite Scron 09-03 Ova and Parasite Scr Sp. Request/Comment: - Specimen received in Ova and Parasite Kit. Culture Result - Negative for Giardia lamblia and Cryptosporidium species by EIA. [facility] Comment on above: Performed By: #### B ETAMM, CMP, LIPA, CBCDIF ####[facility] [address] [place] [phone] PROGRESSon 09-03-2017 PROGRESS HNO ID: [id number] thor: ZAK Joeervice: [facility] MedicineAuthor Type: PhysicianType: Progress NotesFiled: 09/03/2017 1:51 PMNote Text:SERVICE DATE: 09/03/2017SERVICE TIME: 1:50 PMHOSPITAL MEDICINE PROGRESS NOTENIGHT AND WEEKEND COVERAGE: Nights: Please contact pager [phone].Reason for Admission/Observation: Intractable nausea vomiting anddiarrheaHOSPITAL DAY ZERO: 2?Presentation: 26-year-old female presents with abdominal pain, nausea,vomiting, and diarrhea. Symptoms initially began approximately one weekago. They became worse yesterday. Per her she cannot keepanything down. She was seen at a hospital near [facility] approximately4 days ago and was told that she needs to see a surgeon as an outpatientto further evaluate her gallbladder. Per that she had a right upperquadrant ultrasound done at [facility] time. [facility] She reports her symptoms have become worse. She's had increasednausea, vomiting, and diarrhea.Consultants:Dr. Holcomb. WANEKDisposition: HomeSUBJECTIVEInterval HPI:No chest pain or shortness of breath. The patient for 4years as had recurrent bouts of diarrhea which has been treated asulcerative colitis in the past. All her records are in [place]. She alsohas had recurrent vomiting and right upper quadrant pain. She's beenfound to have colitis by CT scan along with multiple gallstones. Her painis improved but still present on examination.OBJECTIVEReviewed lines, drains, AND airways. Need to be continued .BP 92/54 Pulse 74 Temp 36.7 ?C (98 ?F) (Oral) Resp 16 Ht 154.9 cm(5' 1) Wt 55.3 kg (122 lb) LMP 08/02/2017 SpO2 98% BMI 23.05kg/m3AEZYAXB: Alert, no distress, cooperativeNECK: Jugulovenous distention no Supple Yes HJR noLUNGS: Tracheal tug (recruitment of all accessory muscles) - no Prolonged expiratory phase - no Adventitious sounds -noCARDIAC: Rhythm:Regular rhythm Rate: normal S1: normal S2: physiologically split Gallop - no Murmur no Heave noABDOMEN: Negative findings: umbilicus normal, bowel sounds normal, nobruits heard, spleen non-palpable and Positive findings: tenderness: mildlocation: RUQ and LLQ - there is no rigidity or guardingEXTREMITIES:no edema No cordsNEURO: Grossly normal cognition, motor function, and cranial nerves.DATA:Diagnostic tests reviewed for today's visit:Most recent labsOverview was reviewed. Pulse ox-98% room airMost recent-ultrasound/CTCARE COORDINATION:No Patient Care Coordination Note on file.ASSESSMENT AND PLANAssessment AND Plan, all Hosp ProblemsActive Hospital Problems as of 09/03/2017 Noted - Resolved A Colitis, acute 09/03/2017 - Present Current Assessment AND PlanAssessment: 4 years duration with intermittent symptoms treated asulcerative colitis in the past [place] are [place]:Consultation with GI and getting stool studies B Calculus of gallbladder without cholecystitis 09/03/2017 - Present Current Assessment AND PlanAssessment: Multiple stones with recurrent vomiting concerning for biliarycolicPLAN:Surgical evaluation C Diarrhea of presumed infectious origin 09/03/2017 - Present Current Assessment AND PlanAssessment: Stool studies are sentPLAN:Await for results and plan from GI D Hypotension 09/03/2017 - Present Current Assessment AND PlanAssessment: Lactate is negative and she is responding with improvement ofher symptoms with IV hydrationPLAN:Continue hydration M Ulcerative colitis without complications (HCC) 09/03/2017 - Present Current Assessment AND PlanAssessment: similar episodes of diarrhea, N/V, 4 years duration recurrentsymptomsPLAN:As plan of assessment by GI and surgeryPlan of care discussed with: Patient, Family/Other: and daughtersand RNSIGNATURE: Dalila Gilmore MD PATIENT NAME: Elsa GuidoDATE: September 03, 2017 : 1:50 PM PAGER/CONTACT #: Normal [facility] Shig Culture Lab Order Onlyon 09-03-2017 [facility] Shig Culture Lab Order Only Sp. Request/Comment: - SALMONELLA Culture Result - Positive for Salmonella julius --> ABNORMAL ALERT Negative for Shigella. Identification confirmed by the [facility] Critically abnormal [facility] Comment on above: Performed By: #### B ETAMM, CMP, LIPA, CBCDIF ####[facility] [address] [place] [address] Sed Rate Westergrenon 2017 Sed Rate Westergren 25 mm/hr High 0-20 [facility] Comment on above: Performed By: #### C RP ####[facility] [address] [place] [address]#### WSR ####[facility] [address] [place], [place] [phone] CBC and Differentialon 09-02 Abs Baso 0.38 k/uL High <0.11 [facility] Comment on above: Performed By: #### B ETAMM, CMP, LIPA, CBCDIF ####[facility] [address] [place] [address] Abs Lym 2.82 K/uL Normal 0.90-4.00 [facility] Comment on above: Performed By: #### B ETAMM, CMP, LIPA, CBCDIF ####[facility] [address] [phone] Abs Warren 0.85 k/uL Normal <0.87 [facility] Comment on above: Performed By: #### B ETAMM, CMP, LIPA, CBCDIF ####[facility] [address] [place] [address] Abs Neut 4.70 k/uL Normal 1.70-7.00 [facility] Comment on above: Performed By: #### B ETAMM, CMP, LIPA, CBCDIF ####[facility] [address] [place] [address] Basophils/100 WBC Auto (Bld) 4 % Normal [facility] Comment on above: Performed By: #### B ETAMM, CMP, LIPA, CBCDIF ####[facility] [address] [place] [address] Eosinophils 0.66 10*3/uL High <0.46 [facility] Comment on above: Performed By: #### B ETAMM, CMP, LIPA, CBCDIF ####[place] [address] Eosinophils/100 leukocytes 7 % Normal [facility] Comment on above: Performed By: #### B ETAMM, CMP, LIPA, CBCDIF ####[place] [address] Erythrocyte distribution width Auto Ratio (RBC) 12.5 % Normal 11.5-15.0 [facility] Comment on above: Performed By: #### B ETAMM, CMP, LIPA, CBCDIF ####[facility] [address] [place] [address] Erythrocytes (RBC) 4.34 10*6/uL Normal 3.90-5.20 [facility] Comment on above: Performed By: #### B ETAMM, CMP, LIPA, CBCDIF ####[facility] [address] [place] [address] Hematocrit (HCT) 36.3 % Normal 36.0-46.0 [facility] Comment on above: Performed By: #### B ETAMM, CMP, LIPA, CBCDIF ####[facility] [address] [place] [address] Hemoglobin mass conc (Bld) 11.7 g/dL Normal 11.5-15.5 [facility] Comment on above: Performed By: #### B ETAMM, CMP, LIPA, CBCDIF ####[facility] [address] [place] [address] Lymphocytes/100 leukocytes 30 % Normal [facility] Comment on above: Performed By: #### B ETAMM, CMP, LIPA, CBCDIF ####[facility] [address] [place] [address] MCH 27.0 pG Normal 26.0-34.0 [facility] Comment on above: Performed By: #### B ETAMM, CMP, LIPA, CBCDIF ####[facility] [address] [place] [address] MCHC mass conc (RBC) 32.2 g/dL Normal 30.5-36.0 [facility] Comment on above: Performed By: #### B ETAMM, CMP, LIPA, CBCDIF ####[facility] [address] [place] [address] MCV 83.6 fL Normal 80.0-100.0 [facility] Comment on above: Performed By: #### B ETAMM, CMP, LIPA, CBCDIF ####[facility] [address] [place] [address] Monocytes/100 leukocytes 9 % Normal [facility] Comment on above: Performed By: #### B ETAMM, CMP, LIPA, CBCDIF ####[facility] [address] [place] [address] Neutrophils/100 WBC Auto (Bld) 50 % Normal [facility] Comment on above: Performed By: #### B ETAMM, CMP, LIPA, CBCDIF ####[facility] [address] [place] [address] Platelet mean volume (PMV) 8.3 fL Low 9.0-12.7 [facility] Comment on above: Performed By: #### B ETAMM, CMP, LIPA, CBCDIF ####[facility] [address] [place] [address] Platelets 367 10*3/uL Normal 150-400 [facility] Comment on above: Performed By: #### B ETAMM, CMP, LIPA, CBCDIF ####[facility] [phone] Platelets Platelet estimate adequate Normal [facility] Comment on above: Performed By: #### B ETAMM, CMP, LIPA, CBCDIF ####[facility] [phone] Red Cell Morph SEE COMMENT Normal [facility] Comment on above: Result Comment: Norm al Performed By: #### B ETAMM, CMP, LIPA, CBCDIF ####[facility] [address] [place] [phone] WBC (Leukocytes) 9.41 10*3/uL Normal 3.70-11.00 [facility] Comment on above: Performed By: #### B ETAMM, CMP, LIPA, CBCDIF ####[facility] [phone] CT ABD/PEL W IVCONon 018 CT ABD/PEL W IVCON * * *Final Report* * *DATE OF EXAM: Sep 02 2017 9:38PM [facility] [place] ABD/PEL W IVCON / REASON: Abdominal pain * * * * Physician Interpretation * * * * EXAMINATION: CT ABDOMEN AND PELVIS WITH IV CONTRASTCLINICAL HISTORY: Abdominal painTECHNIQUE: Routine helical scanning of the abdomen and pelvis with IV contrast.Contrast:IV: 100 ml Omnipaque 300Oral: None.CT Radiation dose: Integrated Dose-length product (DLP) for this visit = 285 mGy*cm.CT Dose Reduction Employed: Automated exposure control.COMPARISON: 09/02/2017 abdominal ultrasoundRESULT:Lower chest: Negative.Peritoneum/mesentery: There is no free intraperitoneal air or significant free fluid.Liver: Normal.Biliary: Normal.Spleen: Normal.Pancreas: Normal.Kidneys/urinary: Normal.Adrenals: Normal.GI tract: Colonic mural thickening and edema noted from the level of the cecum through the descending colon and possibly extending into the sigmoid colon but the sigmoid is more difficult to evaluate in this patient. No gas bubbles are seen within the thickened bowel wall. Also no gas bubbles in the mesenteric vessels or the portal venous system.Small bowel shows several short segments of dilation, some with air-fluid levels. This includes a dilated fluid-filled terminal ileum.Stomach is unremarkable.Appendix is visualized in the right lower quadrant and does not appear inflamed.Lymph nodes: Negative.Vasculature: Within normal limits.Pelvis: No pelvic masses or fluid collections. Uterus in a retroverted position.There is also asymmetric increased vascularity in the left hemipelvis which is continuous with an enlarged left ovarian vein.Bones/soft tissue: Within normal limits.IMPRESSION:1. Colonic mural thickening from the cecum through the descending colon and possibly involving the proximal sigmoid colon. These changes could represent infectious/inflammatory colitis. Bowel ischemia can have a similar appearance. Recommend correlation with clinical findings.2. Enlarged left ovarian vein and associated increased vascularity in the left adnexal region. This appearance can be seen with the pelvic congestion syndrome. Recommend correlation with clinical findings.Workers Compensation Consultant: BELLA Transcribe Date/Time: Sep 02 2017 9:41PDictated by : OLAF PARISI MDThis examination was interpreted and the report reviewed and electronically signed by: OLAF PARISI MD on Sep 02 2017 9:52PM [id number] Normal [facility] Comp Metabolic Panelon 09-02 Alanine aminotransferase (ALT) U/L Low 7-38 [facility] Comment on above: Performed By: #### B ETAMM, CMP, LIPA, CBCDIF ####[facility] [address] [place] [address] Albumin 4.0 g/dL Normal 3.9-4.9 [facility] Comment on above: Performed By: #### B ETAMM, CMP, LIPA, CBCDIF ####[facility] [address] [place] [address] Alkaline phosphatase (ALP) 70 U/L Normal 32-117 [facility] Comment on above: Performed By: #### B ETAMM, CMP, LIPA, CBCDIF ####[facility] [address] [place] [address] Anion gap 13 mmol/L Normal 9-18 [facility] Comment on above: Performed By: #### B ETAMM, CMP, LIPA, CBCDIF ####[facility] [address] [place] [address] Aspartate aminotransferase (AST) 13 U/L Normal 13-35 [facility] Comment on above: Performed By: #### B ETAMM, CMP, LIPA, CBCDIF ####[facility] [address] [place] [address] Bilirubin (total) 0.2 mg/dL Normal 0.2-1.3 [facility] Comment on above: Performed By: #### B ETAMM, CMP, LIPA, CBCDIF ####[facility] [address] [place] [address] Calcium 9.1 mg/dL Normal 8.5-10.2 [facility] Comment on above: Performed By: #### B ETAMM, CMP, LIPA, CBCDIF ####[facility] [address] [place] [address] Chloride 103 mmol/L Normal 97-105 [facility] Comment on above: Performed By: #### B ETAMM, CMP, LIPA, CBCDIF ####[facility] [address] [place] [address] CO2 25 mmol/L Normal 22-30 [facility] Comment on above: Performed By: #### B ETAMM, CMP, LIPA, CBCDIF ####[facility] [address] [place] [address] Creatinine 0.65 mg/dL Normal 0.58-0.96 [facility] Comment on above: Performed By: #### B ETAMM, CMP, LIPA, CBCDIF ####[facility] [address] [place] [address] eGFR (non-black) mL/min/{1.73_m2} Normal [facility] Comment on above: Result Comment: eGFR (Estimated GFR) Units of measure: mL/min/1.73 meters squaredeGFR is derived from the reexpressed MDRD Study equation using the following parameters: serum creatinine, age, gender and race. The creatinine assay has been calibrated to be traceable to IDMS.An eGFR <60 mL/min/1.73m2 for >3 months is consistent with chronic kidney disease. Refer to KDOQI guidelines for clinical interpretation.In patients with unstable renal function, e.g. those with acute kidney injury, the eGFR may not accurately reflect actual GFR. Performed By: #### B ETAMM, CMP, LIPA, CBCDIF ####[facility] [address] [place] [address] Glucose mass conc 97 mg/dL Normal 74-99 [facility] Comment on above: Result Comment: The [place] Diabetes Association (ADA) provides guidance for cutoff values for fasting glucose and random glucose. The ADA defines fasting as no caloric intake for at least 8 hours. Fasting plasma glucose results between 100 to 125 mg/dL indicate increased risk for diabetes (prediabetes).Fasting plasma glucose results greater than or equal to 126 mg/dL meet the criteria for diagnosis of diabetes. In the absence of unequivocal hyperglycemia, results should be confirmed by repeat testing. In a patient with classic symptoms of hyperglycemia or hyperglycemic crisis, random plasma glucose results greater than or equal to 200 mg/dL meet the criteria for diagnosis of diabetes.Reference: Standards of Medical Care in Diabetes 2016, [place] Diabetes Association. Diabetes Care. 2016.39(Suppl 1). Performed By: #### B ETAMM, CMP, LIPA, CBCDIF ####[facility] [address] [place] [address] Potassium molar conc 3.6 mmol/L Low 3.7-5.1 [facility] Comment on above: Performed By: #### B ETAMM, CMP, LIPA, CBCDIF ####[facility] [address] [place] [address] Protein 7.7 g/dL Normal 6.3-8.0 [facility] Comment on above: Performed By: #### B ETAMM, CMP, LIPA, CBCDIF ####[facility] [address] [place] [address] Sodium 141 mmol/L Normal 136-144 [facility] Comment on above: Performed By: #### B ETAMM, CMP, LIPA, CBCDIF ####[facility] [address] [place] [address] Urea nitrogen 5 mg/dL Low 7-21 [facility] Comment on above: Performed By: #### B ETAMM, CMP, LIPA, CBCDIF ####[facility] [address] [place] [address] ED NOTEon 09-02-2017 ED NOTE HNO ID: [id number] Author: Millie PryorRn) SACHIN Daniel Service: (none) Author Type: Registered Nurse Type: ED Notes Filed: 09/02/2017 9:50 PM Note Text: Patient returned to the Emergency Department. [facility] ED NOTE HNO ID: [id number] Author: Millie PryorRn) SACHIN Daniel Service: (none) Author Type: Registered Nurse Type: ED Notes Filed: 09/02/2017 9:28 PM Note Text: Patient transported to [facility] ED NOTE HNO ID: [id number] Author: Millie PryorRn) SACHIN Daniel Service: (none) Author Type: Registered Nurse Type: ED Notes Filed: 09/02/2017 9:23 PM Note Text: Received report and assumed patient care. Patient UA sent. [facility] ED NOTE HNO ID: [id number] Author: Violetta PryorRn) SACHIN Devine Service: (none) Author Type: Registered Nurse Type: ED Notes Filed: 09/02/2017 5:31 PM Note Text: Diagnosed with gallstones at [facility] last Friday. Pt has been vomiting with abd pain and moist cough. [facility] ED PROV NOTEon 09-02-2017 ED PROV NOTE HNO ID: [id number] thor: Luis Enrique Madrid, DOService: Emergency MedicineAuthor Type: PhysicianType: ED Provider NotesFiled: 09/02/2017 10:33 PMNote Text:ED Provider NotePatient Name: Elsa GuidoMRN: [id number] DATE: 09/02/17HistoryPatient presents with:Abdominal PainNausea AND YjxzurqoXgreroxdGDA14-hewb-yol female presents with abdominal pain, nausea, vomiting, anddiarrhea. Symptoms initially began approximately one week ago. Theybecame worse yesterday. Per her she cannot keep anything down.She was seen at a hospital near [facility] approximately 4 days ago andwas told that she needs to see a surgeon as an outpatient to furtherevaluate her gallbladder. Per that she had a right upper quadrantultrasound done at that time. She does have an appointment in September. Shereports her symptoms have become worse. She's had increased nausea,vomiting, and diarrhea. No urinary symptoms. She does not believe she is. LMP was at end of July.No past medical history on file.No past surgical history on file.No family history on file.Social HistorySocial History Main Topics- Smoking status: Never Smoker- Smokeless tobacco: Never Used- Alcohol use No- Drug use: None- Sexual activity: Not AskedALLERGIESNo Known AllergiesReview of SystemsConstitutional: Positive for fatigue and fever. Negative for chills.HENT: Negative for congestion, ear pain and sore throat.Eyes: Negative for pain and visual disturbance.Respiratory: Negative for cough, choking and shortness of breath.Cardiovascular: Negative for chest pain and palpitations.Gastrointestinal: Positive for abdominal pain, diarrhea, nausea andvomiting.Genitourinary: Negative for dysuria, frequency and urgency.Musculoskeletal: Negative for back pain and neck pain.Skin: Negative for rash.Neurological: Negative for weakness and numbness.Physical ExamBP 112/72 Pulse 88 Temp (Src) 99.5 (Oral) Resp 20 Ht 5' 1 (1.55m) Wt 122 lb (55.3kg) SpO2 97% LMP 08/02/2017 BMI 23.06 kg/(m2).Physical ExamConstitutional: She is oriented to person, place, and time. She appearswell-developed and well-nourished. No distress.HENT:Head: Normocephalic and atraumatic.Mouth/Throat: Oropharynx is clear and moist.Eyes: EOM are normal. Pupils are equal, round, and reactive to light.Neck: Normal range of motion. Neck supple.Cardiovascular: Normal rate and regular rhythm.Pulmonary/Chest: Effort normal and breath sounds normal. No respiratorydistress. She has no wheezes.Abdominal: Soft. Bowel sounds are normal. She exhibits no distension andno mass. There is tenderness. There is no rebound and no guarding.Alternatives palpation in the right upper quadrant and right mid abdomen.There is no Nascimento sign. No rebound or guarding.Musculoskeletal: Normal range of motion. She exhibits no edema ortenderness.Lymphadenopathy: She has no cervical adenopathy.Neurological: She is alert and oriented to person, place, and time. Nocranial nerve deficit.Skin: Skin is warm and dry. No rash noted. She is not diaphoretic.Psychiatric: She has a normal mood and affect.Nursing note and vitals reviewed.Diagnostic TestingED Labs Ordered and ReviewedCOMP METABOLIC PANEL - Abnormal; Notable for the following: Result Value Ref Range BUN 5 (*) 7 - 21 mg/dL Potassium 3.6 (*) 3.7 - 5.1 mmol/L ALT <5 (*) 7 - 38 U/L All other components within normal limitsLIPASE BLD - Abnormal; Notable for the following: Lipase 63 (*) 16 - 61 U/L All other components within normal limitsCBC + DIFF - Abnormal; Notable for the following: MPV 8.3 (*) 9.0 - 12.7 fL Abs Eosin 0.66 (*) <0.46 K/uL Abs Baso 0.38 (*) <0.11 k/uL All other components within normal limitsHCG QUAL BLDURINALYSISMedicationsNaCl 0.9% 1,000 mL iv bolus (1,000 mL INTRAVENOUS Started 09/02/172034)iv contrast (radiology procedure) (not administered)ondansetron (PF) 4 mg injection (ZOFRAN) (4 mg INTRAVENOUS Given )US ABD RT UPPER QUADRANT Final Result IMPRESSION: 1. Findings suggestive of contracted gallstone filled gallbladder. No biliary duct dilatation. Workers Compensation Consultant: [facility] Transcribe Date/Time: Sep 02 2017 8:38P Dictated by : TERESA MCINTOSH MD This examination was interpreted and the report reviewed and electronically signed by: TERESA MCINTOSH MD on Sep 02 2017 8:42PM ESTCT ABD/PEL W IVCON (Results Pending)ProceduresMedical Decision Making / ED CourseED CoursePatient Presents with nausea, vomiting, and diarrhea. Given IV fluids andZofran. Declining for analgesia. Labs ordered. RUQ ultrasound wasordered since this is where patient's pain is located. Findingssuggestive of contracted gallstone filled gallbladder. No biliary ductdilation. CBC overall unremarkable. Lipase was 63. HCG was negative.CMP revealed potassium 3.6, BUN of 5, and ALT of less than 5. Urinalysisis pending at the time of this dictation. CT was also ordered. Patient'srepeat visit for abdominal pain as well as recurrence of symptoms. Thisis to rule out any acute process. The time of this dictation it ispending. If CT is normal and a patient follow up with PCP as well asgeneral surgery for biliary colic. Patient will be signed out to .Encounter Diagnosis ICD-10-CM1. Right upper quadrant abdominal pain R10.112. Nausea vomiting and diarrhea R11.2 R19.7PlanPatient was signed out to Dr. Madrid. Plan is for discharge andfollow-up with surgery if CT normal.Disposition is currently pending. At time of signing out patient wasstable.SIGNATURE: Oumar Em (Dimitris) Uzhvyb31/27/18 2129Attending NoteI have personally performed a face to face assessment of the patient andhave reviewed the PA/CNC MILLING MACHINE OPERATOR note. My fishman findings include:History is Positive complaints of nausea, vomiting and diarrhea. Patientreferred to the ED because of the possibility of a gallbladder problem.Patient notes nausea, vomiting diarrhea. And like this for a while. Shenotes she just can't keep anything in. She's had some chills but nodocumented temperature. No headache or neck pain. No chest pain. Nocough or hemoptysis. No rhinorrhea. No back pain. No dysuria.Exam : Awake and alert patient. Nontoxic. Speaks clearly. HEENT examdoes not show any trauma, rash or icterus. Mucous murmurs are dry. Voiceis clear. Neck is supple without adenopathy. Chest is clear withoutwheeze. Heart is regular without tachycardia. Abdomen soft with somegeneralized tenderness. Mostly in the lower abdomen. No reboundtenderness or guarding. Tympany normal. Bowel sounds present. No signsof acute surgical abdomen. External exam no sinus clubbing or edema.Good tone and good strength and no weakness noted.Assessment/Plan are detailed above. Work up initiated. Repeat vitals aregood. Hydration initiated. She has not vomited she does not feel as ifshe can eat anything. Ultrasound was obtained. CAT scan was obtained.CAT scan showing colonic mural thickening infectious or inflammatorycolitis. Bowel ischemia cannot be ruled out. Enlarged left ovarian veinand associated increased vascularity consistent with possible pelviccongestion syndrome also noted. Patient did not have distinct left pelvictenderness on his exam nor can I palpate a mass. As the patient has hadpersistent nausea, vomiting and diarrhea for over a week I will admit her. Care discussed with hospitalist on-call/Dr Meenakshisundaram who willadmit.Other additions or changes: NoneSignature: Luis Enrique Madrid, DODate: 09/02/2017Time: 10:29 Radha Madrid, DO09/02/17 2233 Normal [facility] Lipaseon 09-02-2017 Lipase 63 U/L High 16-61 [facility] Comment on above: Performed By: #### B ETAMM, CMP, LIPA, CBCDIF ####[facility] Psavneeort[address]65 [phone] Serum Beta HCG [facility] /[facility] use ONLYon 09-02-2017 HCG.beta subunit Qn Negative Normal Negative [facility] Comment on above: Result Comment: Fals e positives and false negatives are rare but have been described. Clinical correlation of the findings is recommended. Performed By: #### B ETAMM, CMP, LIPA, CBCDIF ####[facility] [address] [place] [phone] US ABD RIGHT UPPER QUADRANTo n 09-02-2017 US ABD RIGHT UPPER QUADRANT * * *Final Report* * *DATE OF EXAM: Sep 02 2017 8:21PM STEVEN 1032 - US ABD RIGHT UPPER QUADRANT / REASON: RUQ pain * * * * Physician Interpretation * * * * LIMITED ABDOMINAL ULTRASOUND, 09/02/2017 8:21 PMHISTORY: RUQ painCOMPARISON: None availableTECHNIQUE: Transabdominal grayscale sonography. Color Doppler was also utilized. Images are saved to the permanent archive record.FINDINGS: There is a curvilinear hyperechoic lying along the gallbladder, with acoustic shadowing distally suggesting a wall echo shadow sign. This likely represents gallstones within a contracted gallbladder. No overt gallbladder wall thickening appreciated. The proximal common duct diameter is within normal limits. It measures 2 mm. The small products assembler reports a negative sonographic Nascimento sign.Visible portions of the liver, both kidneys, spleen and pancreas are unremarkable. No fluid collections are seen.Evaluation limited by numerous coughing episodes limiting scanning.IMPRESSION:1. Findings suggestive of contracted gallstone filled gallbladder. No biliary duct dilatation.Workers Compensation Consultant: BELLA Transcribe Date/Time: Sep 02 2017 8:38PDictated by : TERESA MCINTOSH MDThirosa elena examination was interpreted and the report reviewed and electronically signed by: TERESA MCINTOSH MD on Sep 02 2017 8:42PM [id number] Normal [facility] Urinalysison 09-02-2017 Bilirubin, Urine Negative Normal Negative [facility] Comment on above: Performed By: #### U A, UAMIC ####[facility] [address] [place] [address] Hemoglobin mass conc (Bld) Small Critically abnormal Negative [facility] Comment on above: Performed By: #### U A, UAMIC ####[facility] [address] [place] [address] Leukest Negative Normal Negative [facility] Comment on above: Performed By: #### U A, UAMIC ####[facility] [address] [place] [address] pH of blood 5.5 [pH] Normal 5.0-8.0 [facility] Comment on above: Performed By: #### U A, UAMIC ####[facility] [address] [place] [address] Protein, Urine Trace Critically abnormal Negative [facility] Comment on above: Performed By: #### U A, UAMIC ####[facility] [address] [place] [address] Specific [place], Ur 1.015 Normal 1.001-1.029 [facility] Comment on above: Performed By: #### U A, UAMIC ####[facility] [address] [place] [address] Urine, clarity Clear Normal Clear [facility] Comment on above: Performed By: #### U A, UAMIC ####[facility] [address] [place] [address] Urine, color Yellow Normal Yellow [facility] Comment on above: Performed By: #### U A, UAMIC ####[facility] [address] [place] [address] Urine, glucose presence Negative Normal Negative [facility] Comment on above: Performed By: #### U A, UAMIC ####[facility] [address] [place] [address] Urine, ketones presence Negative Normal Negative [facility] Comment on above: Performed By: #### U A, UAMIC ####[facility] [address] [place] [address] Urine, nitrite presence Negative Normal Negative [facility] Comment on above: Performed By: #### U A, UAMIC ####[facility] [address] [place] [address] Urine, urobilinogen 0.2 Normal 0.2-1.0 [facility] Comment on above: Performed By: #### U A, UAMIC ####[facility] [address] [place] [address] Urine Microscopic (FOR LAB U SE ONLY)on 09-02-2017 Cast SEE COMMENT Normal 0 [facility] Comment on above: Result Comment: 0 Performed By: #### U A, UAMIC ####[facility] [address] [place] [address] Erythrocytes (RBC) 0-3 Normal 0-3 [facility] Comment on above: Performed By: #### U A, UAMIC ####[facility] [address] [place] [address] Urine, epithelial cells in sediment SEE COMMENT Normal [facility] Comment on above: Result Comment: 0-5S quamous Epithelial Cells Performed By: #### U A, UAMIC ####[facility] [address] [place] [address] WBC (Leukocytes) 0-5 Normal 0-5 [facility] Comment on above: Performed By: #### U A, UAMIC ####[facility] [address] [place] [address] Auto Diffon 08-29-2017 Basophils Auto #/vol (Bld) 0.1 E3/mcL Normal 0.0-0.2 [facility] Comment on above: Order Comment: Order Added by Discern Expert. Performed By: #### 2 [id number] ####LORNE [address]isnerosQziJymj[address] [place] [address] Basophils/100 WBC Auto (Bld) 0.7 % Normal 0.0-2.0 [facility] Comment on above: Order Comment: Order Added by Discern Expert. Performed By: #### 2 [id number] ####LORNE CisnerosZosFngp3566 [place] [address] Eos Absolute 0.3 E3/mcL Normal 0.0-0.7 [facility] Comment on above: Order Comment: Order Added by Discern Expert. Performed By: #### 2 [id number] ####LORNE [address] [place] [address] Eosinophils/100 leukocytes 3.2 % Normal 0.0-11.0 [facility] Comment on above: Order Comment: Order Added by Discern Expert. Performed By: #### 2 [id number] ####LORNE CisnerosSyyDilx[address]24 [place] [address] Lymphocytes 3.3 E3/mcL Normal 1.2-3.4 [facility] Comment on above: Order Comment: Order Added by Discern Expert. Performed By: #### 2 [id number] ####LORNE [address] [place] [address] Lymphocytes/100 leukocytes 30.8 % Normal 20.0-55.0 [facility] Comment on above: Order Comment: Order Added by Discern Expert. Performed By: #### 2 [id number] ####LORNE [address]af[address] [place] [address] Warren Absolute 0.7 E3/mcL Normal 0.0-0.7 [facility] Comment on above: Order Comment: Order Added by Discern Expert. Performed By: #### 2 [id number] ####LORNE [address] [place] [address] Monocytes/100 leukocytes 6.9 % Normal 0.0-10.0 [facility] Comment on above: Order Comment: Order Added by Discern Expert. Performed By: #### 2 [id number] ####LORNE [address]isnerosFprJktl[address]38 [place] [address] Neutro Absolute 6.3 E3/mcL Normal 1.4-6.5 [facility] Comment on above: Order Comment: Order Added by Discern Expert. Performed By: #### 2 [id number] ####LORNE CisnerosRytDbqs2257 [place] [address] Neutro Auto 58.4 % Normal 37.0-75.0 [facility] Comment on above: Order Comment: Order Added by Discern Expert. Performed By: #### 2 [id number] ####LORNE [address] [place] [id number] CBC w/ Auto Diffon 8 Erythrocyte distribution width Auto Ratio (RBC) 12.9 % Normal 11.5-14.5 [facility] Comment on above: Performed By: #### 2 [id number] ####LORNE [address] [place] [place] [id number] Erythrocytes (RBC) 4.25 E6/mcL Normal 3.90-5.40 [facility] Comment on above: Performed By: #### 2 [id number] ####LORNE Sanchezo[address] [place] [id number] Hematocrit (HCT) 35.5 % Low 36.0-48.0 [facility] Comment on above: Performed By: #### 2 [id number] ####LORNE Sanchezo[address] [place] [id number] Hemoglobin mass conc (Bld) 11.7 g/dL Low 12.0-16.0 [facility] Comment on above: Performed By: #### 2 [id number] ####LORNE S[address]zo[address] [place] [address] MCH 27.5 pg Normal 27.0-31.0 [facility] Comment on above: Performed By: #### 2 [id number] ####LORNE Sanchezo[address] [place] [id number] MCHC mass conc (RBC) 32.9 g/dL Low 33.0-37.0 [facility] Comment on above: Performed By: #### 2 683610 ####LORNE S[address]zo[address] [place] [address] MCV 83.4 fL Normal 78.0-100.0 [facility] Comment on above: Performed By: #### 2 [id number] ####LORNE S[address]zo[address] [place] [id number] Platelet mean volume (PMV) 5.9 fL Low 7.4-11.0 [facility] Comment on above: Performed By: #### 2 [id number] ####LORNE S[address]zo[address] [place] [id number] Platelets 457 E3/mcL High 130-400 [facility] Comment on above: Performed By: #### 2 [id number] ####LORNE S[address]zo[address] [place] [address] WBC (Leukocytes) 10.8 E3/mcL Normal 3.6-11.0 [facility] Comment on above: Performed By: #### 2 [id number] ####LORNE S[address]zo[address] [place] [address] CMPon 08-29-2017 Alanine aminotransferase (ALT) 10 Int._Unit/L Normal 10-40 [facility] Comment on above: Performed By: #### 2 [id number] ####LORNE XjqKxnd1585 [place] [address] Albumin 3.7 g/dL Normal 3.2-5.0 [facility] Comment on above: Performed By: #### 2 574885 ####LORNE Koehler[address] [place] [address] Albumin/Globulin Ratio 0.9 {ratio} Low 1.1-1.9 [facility] Comment on above: Performed By: #### 2 685846 ####LORNE R[address]Vzaa[address] [place] [address] Alk Phos 72 Int._Unit/L Normal 42-121 [facility] Comment on above: Performed By: #### 2 543170 ####LORNE CisnerosQbjOjhf[address]11 [place] [address] Aspartate aminotransferase (AST) 17 Int._Unit/L Normal 10-42 [facility] Comment on above: Performed By: #### 2 960114 ####LORNE [address]mnSnid[address] [place] [address] Bili Total 0.7 mg/dL Normal 0.2-1.0 [facility] Comment on above: Performed By: #### 2 757394 ####LORNE OovMrbc8444 [place] [address] BUN/Creatinine Ratio 13.3 ratio Normal 5.4-30.0 [facility] Comment on above: Performed By: #### 2 253696 ####LORNE NfdBaej7725 [place] [address] Calcium 9.0 mg/dL Normal 8.4-10.2 [facility] Comment on above: Performed By: #### 2 537968 ####LORNE RmqEdcv9048 [place] [address] Chloride 106 mmol/L Normal 98-107 [facility] Comment on above: Performed By: #### 2 854788 ####LORNE GveGuff[address] [place] [address] CO2 26.0 mmol/L Normal 24.0-30.0 [facility] Comment on above: Performed By: #### 2 202881 ####LORNE WqbAuiy[address]14 [place] [address] Creatinine 0.6 mg/dL Normal 0.6-1.3 [facility] Comment on above: Performed By: #### 2 401295 ####LORNEMarybeth KoehlerIdrVvvy7944 [place] [address] Globulin 4.2 g/dL High 2.0-4.0 [facility] Comment on above: Performed By: #### 2 846222 ####LORNEMarybeth KoehlerKovNhmj8270 [place] [address] Glucose mass conc 88 mg/dL Normal 70-99 [facility] Comment on above: Performed By: #### 2 179600 ####LORNEMarybeth KoehlerHtwUhns8059 [place] [address] Potassium molar conc 3.8 mmol/L Normal 3.5-5.1 [facility] Comment on above: Performed By: #### 2 813571 ####LORNEMarybeth KoehlerPyaPcya4370 [place] [address] Protein 7.9 g/dL Normal 6.4-8.3 [facility] Comment on above: Performed By: #### 2 125561 ####LORNEMarybeth CisnerosHwuFvfc5171 [place] [address] Sodium 140 mmol/L Normal 136-145 [facility] Comment on above: Performed By: #### 2 679846 ####LORNEMarybeth CisnerosLkqFodg8169 [place] [address] Urea nitrogen 8 mg/dL Normal 7-18 [facility] Comment on above: Performed By: #### 2 147064 ####LORNEMarybeth KoehlerPvwXbto5101 [place] [address] US Abdomen, Limitedon 2017 US Abdomen, Limited Exam Date/Time:08/29/2017 13:39 ESTReason for Exam:RIGHT UPPER QUAD PAIN NAUSEA ATTN: GALLBLADDER;RUQ PainReportLIMITED ULTRASOUND ABDOMEN:REASON FOR EXAM: Right upper quadrant pain with nausea and vomiting anddiarrhea for 8 days.COMPARISON: CT abdomen and pelvis 09/13/2016FINDINGS: A bile filled gallbladder was not identified. There is hyperdensefocus seen in the gallbladder fossa region with prominent shadowing. This wouldsuggest a gallbladder filled with calculi. Prominent bowel gas can have asimilar appearance. Clinical picture would determine need for any additionalhepatobiliary scan for evidence of cystic duct obstruction.No biliary ductal dilatation is present. CBD measures 3 mm. No focalgallbladder tenderness to transducer pressure to suggest a positive Nascimento signis elicited, although there was mild general right upper quadrant tendernessnoted. No pericholecystic fluid or other ultrasound signs of acutecholecystitis are identified.Pancreas, mass, or edema is not apparent. No ascites is seen. No focal liverabnormality is noted. Liver echogenicity appears satisfactory. No hepaticenlargement is identified.Right kidney is seen, without hydronephrosis.No upper abdominal aortic or vena cava abnormality was apparent.IMPRESSION:A bile filled gallbladder is not identified and there is hyperechoic finding inthe gallbladder fossa region with shadowing suggesting gallbladder filled withcalculi. A prominent area of bowel gas with obscuration can simulate thisfinding. Clinical picture would determine need for any additional hepatobiliaryscan evaluation. No ultrasound signs of acute cholecystitis are identified. Noother acute right upper quadrant ultrasound abnormality was apparent. FINAL REPORT Dictated: 08/29/2017 3:21 pm Gabriel Hewitt DOSigned (Electronic Signature): 08/29/2017 3:21 pmSigned by: Gabriel Hewitt DO Technologist: Normal [facility] eGFRon 08-29-2017 eGFR (non-black) mL/min/{1.73_m2} Normal [facility] Comment on above: Order Comment: Order added by Discern Expert. Performed By: #### 1 [id number] ####[facility] [address]Lgcr[address] [place] [address] Encounters Encounter Date Encounter Type Care Provider Facility Start: 09-16-2017 End: 09-16-2017 Ambulatory Chikis Franklin Facility:[facility] Alejandra warren Start: 09-04-2017 End: 09-04-2017 Ambulatory Pietro Pablo Facility:Pietro Pablo DO Start: 09-02-2017 End: 09-05-2017 Evaluation and management of inpatient [facility] Start: 08-29-2017 End: 08-30-2017 Ambulatory Pietro R Bev Facility:[facility] Start: 08-27-2017 End: 08-28-2017 Ambulatory Pietro R Bev Facility:Pietro Pablo DO Payers Date Payer Category Payer Self-pay 2017 Unknown Summary Purpose Family History No Family History Records FoundNo Family History Records Found Advance Directives No Advanced Directives Records FoundNo Advanced Directives Records Found Additional Source Comments INFORMATION SOURCE (unrecogn ized section and content) DATE CREATED AUTHOR 12/26/2017 [facility] DATE CREATED AUTHOR AUTHOR'S ORGANIZ ATION 12/26/2017 [facility] FOR RECORDS PERTAINING TO PATIENTS WHO ARE OR HAVE BEEN ENROLLED IN A CHEMICAL DEPENDENCY/SUBSTANCEABUSE PROGRAM, SOME INFORMATION MAY BE OMITTED. This clinical summary was aggregated from multiple sources. Caution should be exercised in using it in the provision of clinical care. This summary normalizes information from multiple sources, and as a consequence, information in this document may materially change the coding, format and clinical context of patient data. In addition, data may be omitted in some cases. CLINICAL DECISIONS SHOULD BE BASED ON THE PRIMARY CLINICAL RECORDS. [facility] [employer] provides no warranty or guarantee of the accuracy or completeness of information in this document.
[2025-02-27 18:07] LABS: Pregnancy, Serum, hCG Quali. POSITIVE Negative
[2025-02-27 18:32] VITALS: BP 110/78; PULSE 58; RESP 15; O2SAT 100
[2025-02-27 19:07] LABS: Mucous, Urine 0 SEEN /hpf (<or=2+)
[2025-02-27 19:09] LABS: Color, Urine Yellow (Yellow); Glucose, Dipstick Normal (Normal); Ketone-Dipstick 50 mg/dl (Negative); Leukocyte Esterase-Dipstick 25 /ul (Negative); Nitrite-Dipstick Negative (Negative); Occult Blood-Urine 250 /ul (Negative); Protein-Dipstick 500 mg/dl (Negative); Specific Gravity, Urine 1.020 (1.002-1.030); Urine Bilirubin Dipstick Negative (Negative)
[2025-02-27 19:36] LABS: hCG Titer Quant., Serum 134301 mIU/mL (<9 non-preg)
[2025-02-27 19:50] LABS: Red Blood Cells-Urine 0-5 SEEN /hpf (0-5); Squamous Epithelial Cells - UA 0-5 SEEN /hpf (5-10)
[2025-02-27 20:00] VITALS: BP 106/62; PULSE 95; RESP 16; O2SAT 96
--- NOTE | 2025-02-27 21:42 | CT_ITS ---
PROCEDURE: ABDOMEN/PELVIS W IV CONT ONLY 02/27/2025 REASON FOR EXAM: RLQ PAIN TECHNIQUE: ABDOMEN/PELVIS W IV CONT ONLY Coronal and Sagittal reconstruction series were provided. CONTRAST: Isovue 370 VOLUME: 100 mL One or more dose reduction techniques were used (e.g., Automated exposure control, adjustment of the mA and/or kV according to patient size, use of iterative reconstruction technique. RADIATION DOSE SUMMARY: CTDlvol: 13.30 and 14.53 mGy DLP: 712.92 mGycm COMPARISON: Ultrasound transvaginal first-trimester a FINDINGS: Lung bases: Clear. No pleural effusions. Liver: Unremarkable Gallbladder: Normal Spleen: Normal. Pancreas: Unremarkable Adrenals: Normal appearance. No nodules. Kidneys: Unremarkable. Enhance normally. Bladder: Unremarkable. Reproductive Organs: 4 cm gestational sac in the uterus. Bowel: Convincing evidence of enteritis or colitis. The course of the ascending colon is difficult to follow. I question if there might be a wandering cecum located in the mid zone left pelvis Appendix: Appendix not identified, but no inflammatory process is identified at the suspected location of the appendix. Lymph nodes: No adenopathy. Vasculature: Aorta and IVC are normal Peritoneum / Retroperitoneum: No free fluid or free air. Bones: No aggressive bone lesions. CT/Abdomen/Pelvis W IV Cont ONLY IMPRESSION: Negative exam. Differential diagnostic considerations and additional clinical findings discussed with Dr. Raymond in the ER at 10:40 p.m. February 27, 2025 Reading Location[facility]
[2025-02-27 22:00] VITALS: BP 106/62; PULSE 82; RESP 16; O2SAT 100
[2025-02-27 23:20] VITALS: BP 104/82; PULSE 96; RESP 18; TEMP 36.6; O2SAT 97
== END 2025-02-27 23:22 | disposition home or self-care (01) ==
PROVIDERS: Emergency Provider Emergency Medicine; PCP Physician Assistant; Visit Provider Emergency Medicine
DX: O26.891 Other specified pregnancy related conditions, first trimester (principal); A08.4 Viral intestinal infection, unspecified; O09.521 Supervision of elderly multigravida, first trimester; Z3A.08 8 weeks gestation of pregnancy
CPT/HCPCS: 74177; 76817; 80053; 81001; 83690; 84702; 84703; 85025; 96374; 99283; Q9967; A4216